=== PATIENT | female | born 1995 | race Caucasian/White ===

== ENCOUNTER 2019-11-01 11:14 | Emergency (ER) | payer SELFPAY ==
[2019-11-01 11:25] VITALS: BP 109/61; PULSE 103; RESP 18; TEMP 37.3; O2SAT 99; BMI 25.0
--- NOTE | 2019-11-01 12:16 | W.ED.GENADLT ---
HPI - General Adult General: Chief complaint: Dental/Oral Stated complaint: SORE THROAT Time Seen by Provider: 11/01/19 12:06 History of Present Illness: HPI narrative: Patient is a 24-year-old female who comes to the ED with a sore throat. Symptoms started yesterday when she woke up. She has had a fever of about 100 ?F taken at home. She is taken ibuprofen at home to help with fevers. She describes her throat is very sore and her tonsils feel very swollen. She says she has been very tired over the last 24 hours. Denies any contact with any known mono or strep positive patients. Associated symptoms: Deny chest pain, dyspnea, headache(s), nausea, rash, palpitations or vomiting Review of Systems Const: Reports: fever(s); Denies: chills or fatigue Eyes: Denies: change in vision or eye discomfort ENMT: Reports: throat pain, enlarged tonsils and odynophagia; Denies: nasal discharge or nasal congestion Card: Denies: chest pain, palpitations, edema, swelling of feet/ankles, dyspnea on exertion or orthopnea Resp: Denies: dyspnea, productive cough or non-productive cough GI: Denies: abdominal pain, nausea, vomiting, diarrhea, constipation or hematochezia : Denies: flank pain, dysuria or hematuria Musc: Denies: neck pain, back pain or extremity swelling Skin/Breast: Denies: rash or new lesions Neuro: Denies: headache(s), numbness in extremities or weakness in extremities PFS ED PFSH: Social History Smoking and tobacco status: light tobacco smoker Alcohol intake: current Alcohol intake frequency: holidays/special occasions only Substance/Drug Use: never Female Reproductive History: Date of last menstrual period: 07/30/19 Physical Exam Const: COMMON NORMALS: no acute distress, patient oriented x3 and alert GENERAL APPEARANCE: cooperative HENMT: COMMON NORMALS: normocephalic HEAD & SCALP: normocephalic MOUTH: Normal oral and palatal mucosa present THROAT: uvula midline and abnormal tonsil bilateral erythema, exudates and hypertrophy 3+ OTHER: Patient's breath is malodorous. Eye: COMMON NORMALS: Equal, round and reactive pupils present PUPIL: Yes Equal, round and reactive pupils present Neck/C-Spine: COMMON NORMALS: supple GENERAL: Yes normal visual inspection Resp: COMMON NORMALS: normal respiratory effort, No retractions, No use of accessory muscles and clear to auscultation bilaterally AUSCULTATION: clear to auscultation bilaterally Cardio: COMMON NORMALS: regular rate, regular rhythm, S1 normal heart sound present, S2 normal heart sound present, No gallops present (Cardio), No clicks present (Cardio), No murmurs present (Cardio) and Peripheral pulses 2+ throughout RATE: regular rate RHYTHM: regular rhythm HEART SOUNDS: S1 normal heart sound present and S2 normal heart sound present PERIPHERAL PULSES: Peripheral pulses 2+ throughout GI: COMMON NORMALS: Normal to inspection, nondistended, normoactive bowel sounds present, Soft to palpation, non-tender and no masses PALPATION: Yes Soft to palpation : COMMON NORMALS: Yes no CVA tenderness BLADDER/KIDNEY EXAM: Yes no CVA tenderness Back/Pelvis: COMMON NORMALS: no CVA tenderness Extremity: COMMON NORMALS: normal to inspection and no pedal edema Neuro: COMMON NORMALS: patient oriented x3 and moves all extremities SENSORIUM/ORIENTATION: Yes alert Skin: COMMON NORMALS: no rashes or lesions noted GENERAL SKIN EXAM: no rashes or lesions noted and dry skin Course Vital Signs: Vital signs: Vital Signs Temperature 99.1 F 11/01/19 11:25 Pulse Rate 103 H 11/01/19 11:25 Respiratory Rate 18 11/01/19 11:25 Blood Pressure 109/61 11/01/19 11:25 Pulse Oximetry 99 11/01/19 11:25 MDM - General Adult MDM Narrative: Medical decision making narrative: Patient is a 24-year-old female comes to the ED with sore throat. She tested positive for strep and was given the single dose Bicillin IM treatment. She was also given a dose of Tylenol while here on the unit. Patient was told to follow-up with primary care doctor in 7 to 10 days. Take Tylenol or ibuprofen for fevers or pain. Return to ED if symptoms worsen. Patient understood and agreed with plan. Lab Data: Attestation: I reviewed the patient's lab results. Labs: Lab Results 11/01/19 Range/Units 12:15 Group A Strep Rapi d Positive H (Negative) Discharge Plan Discharge Patient Disposition: Home, Self-Care Clinical Impression: Strep throat Condition: Stable Discharge Orders: Discharge Order (Routine); Ordered 11/01/19 Ordered By: Terry Gaviria Discharge Diet: Regular Discharge Activity: Increase activity as tolerated Patient Instructions: Strep Throat - Adult Activity Restrictions/Additional Instructions: You were given a single injection of penicillin to treat strep while here in the ED. follow-up with medical provider as directed in 7 days. Take Tylenol or ibuprofen as needed for pain or fevers. Drink plenty of fluids and stay hydrated. Return to the ER or your medical provider if condition worsens. Please read and understand discharge instructions. If any questions, please ask. Coding Level of Care Code ED Surgical Instruments Inspector for Jessica Fwd Exam Comprehensive
[2019-11-01 12:31] LABS: Rapid Strep A Test Positive (Negative)
[2019-11-01] MEDS: penicillin g (L-A) 1,200,000 unit/2 mL Syr 1200000 UNIT IM (12:58)
[2019-11-01] MEDS: acetaminophen 500 mg Tablet PO (13:00)
[2019-11-01 13:05] VITALS: BP 113/81; PULSE 72; RESP 18; O2SAT 99
== END 2019-11-01 13:08 | disposition home or self-care (01) ==
PROVIDERS: Emergency Medicine; Emergency Provider Physician Assistant
DX: J02.0 Streptococcal pharyngitis (principal); F17.210 Nicotine dependence, cigarettes, uncomplicated
CPT/HCPCS: 12345; 87880; 96372; 99282; 99283; J0561

== ENCOUNTER → 2021-05-29 10:52 | Outpatient (BNVA) | payer SELFPAY | PROVIDERS: Visit Provider Nurse Practitioner | DX: R10.9 Unspecified abdominal pain (principal) | CPT/HCPCS: 80053; 85025 ==

== ENCOUNTER 2021-06-11 16:42 | Emergency (ER) | payer SELFPAY ==
[2021-06-11 16:58] VITALS: BP 121/80; PULSE 74; RESP 18; TEMP 36.9; O2SAT 99; BMI 23.8
--- NOTE | 2021-06-11 17:31 | W.ED.GENADLT ---
Documented by User: LUIS Dodge 06/12/21 00:51 HPI - General Adult General: Chief complaint: General Medical Stated complaint: vomiting up blood and green foam Time Seen by Provider: 06/11/21 17:04 History of Present Illness: Patient is a 25-year-old female who comes to the ED with abdominal pain, nausea/vomiting and diarrhea. Patient has been having the symptoms now for almost 3 months. She saw her PCP 2 weeks ago and they put her on some Zofran and it helped but when she ran out her symptoms came back. She started having abdominal pain nausea and vomiting and diarrhea at 3:00 this morning. She has not been able to keep any food or fluids down. She is having multiple episodes of diarrhea daily. Her abdominal pain is located in the left upper and left lower side of the abdomen. She rates her pain as mild to moderate. Associated symptoms: Reports nausea and vomiting; Deny chest pain, dyspnea, headache(s), rash or palpitations Review of Systems Const: Reports: chills and fatigue; Denies: fever(s) Eyes: Denies: change in vision or eye discomfort ENMT: Denies: throat pain, odynophagia, nasal discharge or nasal congestion Card: Denies: chest pain, palpitations, edema, swelling of feet/ankles, dyspnea on exertion or orthopnea Resp: Denies: dyspnea, productive cough or non-productive cough GI: Reports: abdominal pain, nausea, vomiting and diarrhea; Denies: constipation or hematochezia : Reports: vaginal discharge (Yellowish and green follow-up with medical provider as directed in 7-10 day); Denies: flank pain, dysuria or hematuria Musc: Denies: neck pain, back pain or extremity swelling Skin/Breast: Denies: rash or new lesions Neuro: Denies: headache(s), numbness in extremities or weakness in extremities PFSH ED PFSH: Medical History No pertinent family history Surgical History H/O tubal ligation Social History Smoking and tobacco status: current every day smoker Alcohol intake: current Alcohol intake frequency: holidays/special occasions only Current gender identity: Female Female Reproductive History: Date of last menstrual period: 12/23/20 Physical Exam Const: COMMON NORMALS: no acute distress, patient oriented x3, healthy appearing and alert GENERAL APPEARANCE: cooperative and comfortable HENMT: COMMON NORMALS: normocephalic HEAD & SCALP: normocephalic MOUTH: Normal oral and palatal mucosa present THROAT: posterior oropharynx normal and uvula midline Eye: COMMON NORMALS: Equal, round and reactive pupils present and conjunctivae normal CONJUNCTIVA: Yes conjunctivae normal PUPIL: Yes Equal, round and reactive pupils present Neck/C-Spine: COMMON NORMALS: supple GENERAL: Yes normal visual inspection Resp: COMMON NORMALS: normal respiratory effort, No retractions, No use of accessory muscles and clear to auscultation bilaterally AUSCULTATION: clear to auscultation bilaterally Cardio: COMMON NORMALS: regular rate, regular rhythm, S1 normal heart sound present, S2 normal heart sound present, No gallops present (Cardio), No clicks present (Cardio), No murmurs present (Cardio) and Peripheral pulses 2+ throughout RATE: regular rate RHYTHM: regular rhythm HEART SOUNDS: S1 normal heart sound present and S2 normal heart sound present PERIPHERAL PULSES: Peripheral pulses 2+ throughout GI: COMMON NORMALS: Normal to inspection, nondistended, normoactive bowel sounds present, Soft to palpation, non-tender and no masses PALPATION: Yes Soft to palpation : COMMON NORMALS: Yes no CVA tenderness BLADDER/KIDNEY EXAM: Yes no CVA tenderness Back/Pelvis: COMMON NORMALS: no CVA tenderness Extremity: COMMON NORMALS: normal to inspection and no pedal edema Neuro: COMMON NORMALS: patient oriented x3 SENSORIUM/ORIENTATION: Yes alert GAIT: Yes Normal gait present Skin: GENERAL SKIN EXAM: dry skin Course Vital Signs: Vital signs: Vital Signs Temperature 97.5 F L 06/11/21 21:55 Pulse Rate 87 06/11/21 21:55 Respiratory Rate 17 06/11/21 21:55 Blood Pressure 115/64 06/11/21 21:55 Pulse Oximetry 98 06/11/21 21:55 [facility] - General Adult Medical Decision Making Patient is a 25-year-old female comes to the ED with abdominal pain, nausea/vomiting and diarrhea. She has been having symptoms like this for the past couple months and said it went away recently but came back within the last couple days. Vitals are stable. Abdominal tenderness on the left upper and left lower quadrant of the abdomen. The rest of exam is benign and patient appears nontoxic and in no acute distress or pain. White blood cell count 13.7 which is actually down from her white blood cell count of 18 approximately 2 weeks ago. Patient has potassium level of 2.6. The rest of her labs are benign. hCG negative. EKG showed no acute findings. CT of the abdomen/pelvis showed no acute findings. Patient was given 1.5 L of fluids, Reglan and IV potassium while here in the ED. Her symptoms improved after IV fluids and meds and she was able to keep p.o. fluids down. Patient was diagnosed with hypokalemia and gastroenteritis and discharged home with some Reglan and dicyclomine. She was told to follow-up with her PCP in the next 3 to 5 days for reevaluation and to have her potassium levels rechecked. Return to ED precautions given. Patient understood and agreed with plan. Lab Data I reviewed the patient's lab results. : 06/11/21 18:20 06/11/21 18:20 Radiology Impressions Abdomen/Pelvis CT 06/11/21 17:35 IMPRESSION: 1. No acute findings. 2. Hepatic steatosis. Laboratory Results WBC 13.7 10^3/uL (4.0-10.0) H 06/11/21 18:20 RBC 3.92 10^6/uL (4.1-5.3) L 06/11/21 18:20 Hgb 12.8 g/dL (11.5-15.3) 06/11/21 18:20 Hct 38.1 % (37.0-47.0) 06/11/21 18:20 MCV 97.2 fl (81-99) 06/11/21 18:20 MCH 32.7 pg (28.0-34.0) 06/11/21 18:20 MCHC 33.6 g/dL (30.0-36.0) 06/11/21 18:20 RDW 14.0 % (12.1-15.1) 06/11/21 18:20 Plt Count 453 10^3/cmm (130-400) H 06/11/21 18:20 MPV 9.5 fL (7.4-10.4) 06/11/21 18:20 Neut % (Auto) 71.4 % 06/11/21 18:20 Lymph % (Auto) 19.6 % 06/11/21 18:20 Catron % (Auto) 6.8 % 06/11/21 18:20 Eos % (Auto) 0.9 % 06/11/21 18:20 Baso % (Auto) 0.9 % 06/11/21 18:20 Neut # (Auto) 9.76 10^3/uL (1.8-7.7) H 06/11/21 18:20 Lymph # (Auto) 2.7 10^3/uL (0.8-4.8) 06/11/21 18:20 Catron # (Auto) 0.9 10^3/uL (0.2-0.9) 06/11/21 18:20 Eos # (Auto) 0.1 10^3/uL (0.0-0.8) 06/11/21 18:20 Baso # (Auto) 0.1 10^3/uL (0.0-0.1) 06/11/21 18:20 Nucleated RBC % (auto) 0 % 06/11/21 18:20 Nucleated RBCs # 0.0 /100WBC 06/11/21 18:20 Sodium 136 mmol/L (136-145) 06/11/21 18:20 Potassium 2.6 mmol/L (3.5-5.1) L* 06/11/21 18:20 Chloride 97 mmol/L (98-107) L 06/11/21 18:20 Carbon Dioxide 24 mmol/L (22-29) 06/11/21 18:20 Anion Gap 17.6 (5-19) 06/11/21 18:20 BUN 4 mg/dL (6-20) L 06/11/21 18:20 Creatinine 0.6 mg/dL (0.5-0.9) 06/11/21 18:20 GFR Calculation 122.8 mL/min (90-130) 06/11/21 18:20 Glucose 119 mg/dL (65-115) H 06/11/21 18:20 Calculated Osmolality 280 mOsm/kg (285-295) L 06/11/21 18:20 Calcium 8.6 mg/dL (8.5-10.5) 06/11/21 18:20 Total Bilirubin 0.7 mg/dL (0.15-1.2) 06/11/21 18:20 AST 26 U/L (0-32) 06/11/21 18:20 ALT 19 U/L (0-33) 06/11/21 18:20 Alkaline Phosphatase 130 IU/L (35-105) H 06/11/21 18:20 Total Protein 6.7 g/dL (6.6-8.7) 06/11/21 18:20 Albumin 4.3 g/dL (3.5-5.2) 06/11/21 18:20 Globulin 2.4 g/dL (1.3-4.6) 06/11/21 18:20 Lipase 9 U/L (13-60) L 06/11/21 18:20 HCG, Qual Negative (Negative) 06/11/21 18:20 Urine Color Yellow (Yellow) 06/11/21 19:25 Urine Appearance Clear (CLEAR) 06/11/21 19:25 Urine pH 5 (5-7) 06/11/21 19:25 Ur Specific [place] 1.007 (1.005-1.030) 06/11/21 19:25 Urine Protein Neg (Negative) 06/11/21 19:25 Urine Glucose (UA) Norm (Normal) 06/11/21 19:25 Urine Ketones Negative (Negative) 06/11/21 19:25 Urine Blood Neg (Negative) 06/11/21 19:25 Urine Nitrate Negative (Negative) 06/11/21 19:25 Urine Bilirubin Neg (Negative) 06/11/21 19:25 Urine Urobilinogen 1 mg/dL (Negative) H 06/11/21 19:25 Ur Leukocyte Esterase Negative (Negative) 06/11/21 19:25 EKG Data EKG 1: EKG interpretation date: 06/11/21 Interpretation: Normal sinus rhythm, no ST segment elevation or depression seen. 70 bpm. Computer generated interpretation: Abdomen/Pelvis CT 06/11/21 17:35 IMPRESSION: 1. No acute findings. 2. Hepatic steatosis. Discharge Plan Discharge Patient Disposition: Home Clinical Impression: Hypokalemia, Gastroenteritis Condition: Stable Prescriptions: New Reglan 10 mg tablet 10 mg PO Q6H PRN (Reason: nausea and vomiting) Qty: 30 0RF dicyclomine 20 mg tablet 20 mg PO QID PRN (Reason: diarrhea and abdominal cramping) Qty: 20 0RF No Action pantoprazole [Protonix] 20 mg tablet,delayed release (DR/EC) 20 mg PO DAILY 14 Days Qty: 14 0RF Discharge Orders: Discharge ED (Routine); Ordered 06/11/21 Ordered By: Terry Gaviria Discharge Diet: Advance as tolerated, Regular and Clear Liquid Discharge Activity: Increase activity as tolerated Patient Instructions: Hypokalemia (ED), Gastroenteritis (ED), Acute Nausea and Vomiting (ED) Activity Restrictions/Additional Instructions: Follow-up with medical provider as directed in the next 2 to 5 days for reevaluation. Have your potassium level rechecked at next appointment. Drink plenty of fluids and stay hydrated. Take medications as prescribed. Return to the ER or your medical provider if condition worsens. Please read and understand discharge instructions. Thank you for choosing [facility] for your healthcare needs today. Please realize this is an emergency room and that we are providing you with a medical screening exam and this may not be complete and all inclusive of all the testing and or work up that you may need to determine your ailment or severity of your illness. It is very important that you follow up as instructed or that you return to the Emergency Department should you have concerns or if your condition changes or worsens in any way. Coding Level of Care Code ED Radio Producer for Chg Fwd Exam Comprehensive Documented by User: Mauro Rollins DO 06/12/21 01:11 HPI - General Adult General: Chief complaint: General Medical Stated complaint: vomiting up blood and green foam Time Seen by Provider: 06/11/21 17:04 History of Present Illness: Patient is a 25-year-old female who comes to the ED with abdominal pain, nausea/vomiting and diarrhea. Patient has been having the symptoms now for almost 3 months. She saw her PCP 2 weeks ago and they put her on some Zofran and it helped but when she ran out her symptoms came back. She started having abdominal pain nausea and vomiting and diarrhea at 3:00 this morning. She has not been able to keep any food or fluids down. She is having multiple episodes of diarrhea daily. Her abdominal pain is located in the left upper and left lower side of the abdomen. She rates her pain as mild to moderate. This patient was originally seen by Mr. Khadra PA-C.? I agree with his history, evaluation, and treatment. [facility] ED PFSH: Medical History No pertinent family history Surgical History H/O tubal ligation Social History Smoking and tobacco status: current every day smoker Alcohol intake: current Alcohol intake frequency: holidays/special occasions only Current gender identity: Female Course Vital Signs: Vital signs: Vital Signs Temperature 97.5 F L 06/11/21 21:55 Pulse Rate 87 06/11/21 21:55 Respiratory Rate 17 06/11/21 21:55 Blood Pressure 115/64 06/11/21 21:55 Pulse Oximetry 98 06/11/21 21:55 MDM - General Adult Lab Data : 06/11/21 18:20 06/11/21 18:20 Radiology Impressions Abdomen/Pelvis CT 06/11/21 17:35 IMPRESSION: 1. No acute findings. 2. Hepatic steatosis. Laboratory Results WBC 13.7 10^3/uL (4.0-10.0) H 06/11/21 18:20 RBC 3.92 10^6/uL (4.1-5.3) L 06/11/21 18:20 Hgb 12.8 g/dL (11.5-15.3) 06/11/21 18:20 Hct 38.1 % (37.0-47.0) 06/11/21 18:20 MCV 97.2 fl (81-99) 06/11/21 18:20 MCH 32.7 pg (28.0-34.0) 06/11/21 18:20 MCHC 33.6 g/dL (30.0-36.0) 06/11/21 18:20 RDW 14.0 % (12.1-15.1) 06/11/21 18:20 Plt Count 453 10^3/cmm (130-400) H 06/11/21 18:20 MPV 9.5 fL (7.4-10.4) 06/11/21 18:20 Neut % (Auto) 71.4 % 06/11/21 18:20 Lymph % (Auto) 19.6 % 06/11/21 18:20 Catron % (Auto) 6.8 % 06/11/21 18:20 Eos % (Auto) 0.9 % 06/11/21 18:20 Baso % (Auto) 0.9 % 06/11/21 18:20 Neut # (Auto) 9.76 10^3/uL (1.8-7.7) H 06/11/21 18:20 Lymph # (Auto) 2.7 10^3/uL (0.8-4.8) 06/11/21 18:20 Catron # (Auto) 0.9 10^3/uL (0.2-0.9) 06/11/21 18:20 Eos # (Auto) 0.1 10^3/uL (0.0-0.8) 06/11/21 18:20 Baso # (Auto) 0.1 10^3/uL (0.0-0.1) 06/11/21 18:20 Nucleated RBC % (auto) 0 % 06/11/21 18:20 Nucleated RBCs # 0.0 /100WBC 06/11/21 18:20 Sodium 136 mmol/L (136-145) 06/11/21 18:20 Potassium 2.6 mmol/L (3.5-5.1) L* 06/11/21 18:20 Chloride 97 mmol/L (98-107) L 06/11/21 18:20 Carbon Dioxide 24 mmol/L (22-29) 06/11/21 18:20 Anion Gap 17.6 (5-19) 06/11/21 18:20 BUN 4 mg/dL (6-20) L 06/11/21 18:20 Creatinine 0.6 mg/dL (0.5-0.9) 06/11/21 18:20 GFR Calculation 122.8 mL/min (90-130) 06/11/21 18:20 Glucose 119 mg/dL (65-115) H 06/11/21 18:20 Calculated Osmolality 280 mOsm/kg (285-295) L 06/11/21 18:20 Calcium 8.6 mg/dL (8.5-10.5) 06/11/21 18:20 Total Bilirubin 0.7 mg/dL (0.15-1.2) 06/11/21 18:20 AST 26 U/L (0-32) 06/11/21 18:20 ALT 19 U/L (0-33) 06/11/21 18:20 Alkaline Phosphatase 130 IU/L (35-105) H 06/11/21 18:20 Total Protein 6.7 g/dL (6.6-8.7) 06/11/21 18:20 Albumin 4.3 g/dL (3.5-5.2) 06/11/21 18:20 Globulin 2.4 g/dL (1.3-4.6) 06/11/21 18:20 Lipase 9 U/L (13-60) L 06/11/21 18:20 HCG, Qual Negative (Negative) 06/11/21 18:20 Urine Color Yellow (Yellow) 06/11/21 19:25 Urine Appearance Clear (CLEAR) 06/11/21 19:25 Urine pH 5 (5-7) 06/11/21 19:25 Ur Specific [place] 1.007 (1.005-1.030) 06/11/21 19:25 Urine Protein Neg (Negative) 06/11/21 19:25 Urine Glucose (UA) Norm (Normal) 06/11/21 19:25 Urine Ketones Negative (Negative) 06/11/21 19:25 Urine Blood Neg (Negative) 06/11/21 19:25 Urine Nitrate Negative (Negative) 06/11/21 19:25 Urine Bilirubin Neg (Negative) 06/11/21 19:25 Urine Urobilinogen 1 mg/dL (Negative) H 06/11/21 19:25 Ur Leukocyte Esterase Negative (Negative) 06/11/21 19:25 EKG Data EKG 1: Computer generated interpretation: Abdomen/Pelvis CT 06/11/21 17:35 IMPRESSION: 1. No acute findings. 2. Hepatic steatosis. Discharge Plan Discharge Patient Disposition: Home Clinical Impression: Hypokalemia, Gastroenteritis Condition: Stable Prescriptions: New Reglan 10 mg tablet 10 mg PO Q6H PRN (Reason: nausea and vomiting) Qty: 30 0RF dicyclomine 20 mg tablet 20 mg PO QID PRN (Reason: diarrhea and abdominal cramping) Qty: 20 0RF No Action pantoprazole [Protonix] 20 mg tablet,delayed release (DR/EC) 20 mg PO DAILY 14 Days Qty: 14 0RF Discharge Orders: Discharge ED (Routine); Ordered 06/11/21 Ordered By: Terry Gaviria Discharge Diet: Advance as tolerated, Regular and Clear Liquid Discharge Activity: Increase activity as tolerated Patient Instructions: Hypokalemia (ED), Gastroenteritis (ED), Acute Nausea and Vomiting (ED) Activity Restrictions/Additional Instructions: Follow-up with medical provider as directed in the next 2 to 5 days for reevaluation. Have your potassium level rechecked at next appointment. Drink plenty of fluids and stay hydrated. Take medications as prescribed. Return to the ER or your medical provider if condition worsens. Please read and understand discharge instructions. Thank you for choosing [facility] for your healthcare needs today. Please realize this is an emergency room and that we are providing you with a medical screening exam and this may not be complete and all inclusive of all the testing and or work up that you may need to determine your ailment or severity of your illness. It is very important that you follow up as instructed or that you return to the Emergency Department should you have concerns or if your condition changes or worsens in any way. Coding Level of Care Code ED Radio Producer for Jessica Green Exam Comprehensive
--- NOTE | 2021-06-11 17:35 | CTR_ITS ---
PROCEDURE INFORMATION: Exam: CT Abdomen And Pelvis With Contrast Exam date and time: 06/11/2021 5:35 PM Age: 25 years old Clinical indication: Nausea and vomiting and other: Diarrhea; Abdominal pain; Localized; Left lower quadrant (llq); Prior surgery; Surgery date: 6+ months; Surgery type: Appy; Additional info: Left side abdominal pain, n/v/d TECHNIQUE: Imaging protocol: Computed tomography of the abdomen and pelvis with contrast. Radiation optimization: All CT scans at this facility use at least one of these dose optimization techniques: automated exposure control; mA and/or kV adjustment per patient size (includes targeted exams where dose is matched to clinical indication); or iterative reconstruction. Contrast material: OMNI 300; Contrast volume: 95 ml; Contrast route: INTRAVENOUS (IV); COMPARISON: No relevant prior studies available. RADIATION DOSE METRICS: Total DLP (mGy-cm): 1002.51 FINDINGS: Lungs: Lung bases are clear. Liver: There is diffuse low-attenuation of the liver relative to the spleen consistent with fatty infiltration. There is no focal liver abnormality. Gallbladder and bile ducts: The gallbladder is normal. There is no biliary dilation. Pancreas: The pancreas is unremarkable. Spleen: The spleen is unremarkable. Adrenal glands: The adrenal glands are unremarkable. Kidneys and ureters: The kidneys are unremarkable. No hydronephrosis or stones. No ureteral dilation. Stomach and bowel: The stomach is decompressed, preventing meaningful evaluation of wall thickness. The small bowel is nondilated. The colon is unremarkable. Appendix: The appendix is absent. Intraperitoneal space: There is no free air or significant intraperitoneal free fluid. Vasculature: The aorta is unremarkable. There is no aneurysm. The portal, splenic and superior mesenteric veins are patent. Lymph nodes: There is no lymphadenopathy in the retroperitoneum, mesentery, pelvis or inguinal regions. Urinary bladder: The urinary bladder is unremarkable. Reproductive: The uterus is unremarkable. There is no adnexal mass or large cyst. Bones/joints: Unremarkable. No acute fracture. Soft tissues: The abdominal wall is intact. CT/CT abdomen pelvis w con* [id number] IMPRESSION: 1. No acute findings. 2. Hepatic steatosis.
[2021-06-11] MEDS: sodium chloride 0.9% 1,000 ML 999 ML IV (18:00)
[2021-06-11] MEDS: ondansetron 2 mg/ML SDV 2 mL 4 MG IVP (18:00)
[2021-06-11 18:25] LABS: Basophils # 0.1 10^3/uL (0.0-0.1); Basophils % 0.9 %; Eosinophils # 0.1 10^3/uL (0.0-0.8); Eosinophils % 0.9 %; Hematocrit 38.1 % (37.0-47.0); Hemoglobin 12.8 g/dL (11.5-15.3); Lymphocytes # 2.7 10^3/uL (0.8-4.8); Lymphocytes % 19.6 %; Mean Corpuscular HGB Conc 33.6 g/dL (30.0-36.0); Mean Corpuscular Hemoglobin 32.7 pg (28.0-34.0); Mean Corpuscular Volume 97.2 fl (81-99); Mean Platelet Volume 9.5 fL (7.4-10.4); Monocytes # 0.9 10^3/uL (0.2-0.9); Monocytes % 6.8 %; Neutrophils # 9.76 10^3/uL (1.8-7.7); Neutrophils % 71.4 %; Nucleated Red Blood Cells % 0 %; Platelet Count 453 10^3/cmm (130-400); Red Blood Count 3.92 10^6/uL (4.1-5.3); White Blood Count 13.7 10^3/uL (4.0-10.0)
[2021-06-11 18:36] LABS: HCG, Serum Qual Negative (Negative)
[2021-06-11 18:46] LABS: Alanine Aminotransferase 19 U/L (0-33); Albumin Level 4.3 g/dL (3.5-5.2); Alkaline Phosphatase 130 IU/L (35-105); Anion Gap 17.6 (5-19); Aspartate Amino Transferase 26 U/L (0-32); Blood Urea Nitrogen 4 mg/dL (6-20); Calcium 8.6 mg/dL (8.5-10.5); Carbon Dioxide 24 mmol/L (22-29); Chloride 97 mmol/L (98-107); Globulin 2.4 g/dL (1.3-4.6); Glomerular Filtration Rate 122.8 mL/min (90-130); Glucose 119 mg/dL (65-115); Lipase 9 U/L (13-60); Osmolality Calculated 280 mOsm/kg (285-295); Sodium 136 mmol/L (136-145); Total Bilirubin 0.7 mg/dL (0.15-1.2); Total Protein 6.7 g/dL (6.6-8.7)
[2021-06-11 18:53] LABS: Potassium 2.6 mmol/L (3.5-5.1)
--- NOTE | 2021-06-11 18:54 | ECG_ITS ---
[facility] Test Date: 2021-06-11 Pat Name: Kinsey Irvin Department: Room: Gender: Female Central Supply Clerk: : 1995 Requested By: Terry Gaviria Order Number: [id number] Van MD: John Nash M.D. Measurements Intervals [place] Rate: 70 P: 66 NE: 130 QRS: 75 QRSD: 102 T: 78 QT: 419 QTc: 453 Interpretive Statements SINUS RHYTHM INCOMPLETE RIGHT BUNDLE BRANCH BLOCK [90+ ms QRS DURATION, TERMINAL R IN V1/V2, 40+ ms S IN I/aVL/V4/V5/V6] NONSPECIFIC T-WAVE ABNORMALITY Compared to ECG 05/29/2018 16:42:04 Incomplete right bundle-branch block now present T-wave abnormality now present Electronically Signed On 06-12-2021 8:49:56 DRAWING TRACER by John Nash M.D. [id number]
[2021-06-11] MEDS: iohexol 300 mg/mL 100 mL Btl IV (19:08)
[2021-06-11 19:32] LABS: Add Urine Microscopic? NO; Charge for UA Resulting for Rev
[2021-06-11 19:36] LABS: Bilirubin Urine Neg (Negative); Blood Urine Neg (Negative); Glucose Urine UA Norm (Normal); Ketones Urine Negative (Negative); Leukocyte Esterase Urine Negative (Negative); Nitrate Urine Negative (Negative); Protein Urine Neg (Negative); Specific Gravity, Urine 1.007 (1.005-1.030); Urine Appearance Clear (CLEAR); Urine Color Yellow (Yellow); Urobilinogen Urine 1 mg/dL (Negative); pH Urine 5 (5-7)
[2021-06-11] MEDS: sodium chloride 0.9% 500 ML 999 ML IV (19:47)
[2021-06-11] MEDS: lidocaine 1% 5 ML in potassium chloride premix 100 ML 25 ML IV (19:48)
[2021-06-11] MEDS: metoclopramide 5 mg/mL SDV 2 mL 10 MG IVP (20:07)
[2021-06-11 20:09] VITALS: BP 115/64; PULSE 70; RESP 14; TEMP 36.6; O2SAT 98
[2021-06-11 21:55] VITALS: BP 115/64; PULSE 87; RESP 17; TEMP 36.4; O2SAT 98
== END 2021-06-11 21:56 | disposition home or self-care (01) ==
PROVIDERS: Emergency Provider Physician Assistant
DX: K52.9 Noninfective gastroenteritis and colitis, unspecified (principal); E87.6 Hypokalemia; F17.210 Nicotine dependence, cigarettes, uncomplicated
CPT/HCPCS: 74177; 80053; 81003; 83690; 84703; 85025; 87210; 93005; 96361; 96365; 96375; 99284; J2405; J2765; J3480; J7030; J7040; Q9967

== ENCOUNTER → 2021-06-28 12:39 | Outpatient (BNVA) | payer SELFPAY | PROVIDERS: Visit Provider Nurse Practitioner | DX: R50.9 Fever, unspecified (principal) | CPT/HCPCS: 87071; 87400; 87880 ==

== ENCOUNTER 2021-10-05 17:04 | Inpatient (IN) | payer MEDICAID, SELFPAY ==
[2021-10-05 17:05] VITALS: BP 118/70; PULSE 77; O2SAT 95; BMI 23.3
--- NOTE | 2021-10-05 17:08 | XRR_ITS ---
PROCEDURE INFORMATION: Exam: XR Chest Exam date and time: 10/05/2021 5:31 PM Age: 26 years old Clinical indication: Other: AMS TECHNIQUE: Imaging protocol: XR of the chest. Views: 1 view. COMPARISON: CR Chest 1 [place] [id number] 05/29/2018 5:12 PM FINDINGS: Lungs: Unremarkable. No consolidation. Pleural spaces: Unremarkable. No pleural effusion. No pneumothorax. Heart/Mediastinum: Unremarkable. No cardiomegaly. Bones/joints: Unremarkable. XR/XR chest 1V portable [id number] IMPRESSION: No acute findings.
--- NOTE | 2021-10-05 17:09 | W.ED.GENADLT ---
HPI - General Adult General: Chief complaint: Psychiatric Symptoms Stated complaint: SI Time Seen by Provider: 10/05/21 17:07 History of Present Illness: HPI: [26]yo patient w/ hx of depression presenting to the emergency room for acute polysubstance ingestion and suicide attempt. Per EMS, patient was found next to a bottle of 14 tablets of 20 mg of pantoprazole, a bottle of 21 tablets of 300 mg of gabapentin, and a bottle of 21 tablets of 10 mg of Flexeril that does not belong to the patient. These bottles were filled under a different person in July 2020. Is unclear how much of these pills patient has ingested. On arrival, EMS report the patient ingested alcohol volunteered that she did marijuana earlier today. Patient was agitated in route and EMS had to give patient 200 mg of ketamine. On arrival, patient is somnolent sleeping not agitated. Rest of hx limited due to AMS Onset: acute Duration: ongoing Location: home Severity: severe Review of Systems General: Reports: ROS unobtainable due to mental status Neuro: Reports: other (confusion, sleeping) Psych: Reports: mood swings and other (agitation) PFSH ED PFSH: Medical History No pertinent family history Surgical History H/O tubal ligation Social History Smoking and tobacco status: current every day smoker Alcohol intake: current Alcohol intake frequency: holidays/special occasions only Current gender identity: Female Female Reproductive History: Date of last menstrual period: 12/23/20 Physical Exam HENMT: COMMON NORMALS: atraumatic HEAD & SCALP: atraumatic MOUTH: moist mucous membranes not abnormal Eye: COMMON NORMALS: conjunctivae normal CONJUNCTIVA: Yes conjunctivae normal Neck/C-Spine: COMMON NORMALS: full ROM and supple Resp: COMMON NORMALS: normal respiratory effort and clear to auscultation bilaterally AUSCULTATION: clear to auscultation bilaterally Cardio: COMMON NORMALS: regular rate RATE: regular rate GI: COMMON NORMALS: Soft to palpation and non-tender PALPATION: Yes Soft to palpation Extremity: OTHER: moving all extremities Neuro: SENSORIUM/ORIENTATION: Yes Orientation impaired and Yes somnolent MOTOR EXAM: Other motor observations present (no focal motor deficits) OTHER: Somnolent GCS of 10, occasionally moving extremities arousable to sternal rub Psych: OTHER: +unable to assess due to AMS Course Vital Signs: Vital signs: Vital Signs Pulse Rate 77 10/05/21 17:05 Blood Pressure 118/70 10/05/21 17:05 Pulse Oximetry 95 10/05/21 17:05 MDM - General Adult Medical Decision Making [26]yo patientpresenting for SI with apparent drug overdose. HDS, exam within normal limit Thoughts are linear and organized, and the patient has no AH/VH, or HI. PER EMS: Patient received 200 mg of IM ketamine. Clinically the patient displays no overt toxidrome; they are well appearing, with low suspicion for toxic ingestion given history and exam. Symptoms unlikely 2/2 anemia, hypothyroidism, infection, or ICH. Workup: CBC, CMP, Lipase, salicylate/tylenol, serum ethanol, UDS, CT head Case was discussed with Jina from poison center who tells me that patient would subtoxic if she has taken the maximum dose of these bottles found next to her. Patient is cleared from a toxicological standpoint. She continues to be agitated and required Geodon for sedation. Patient was found to have an alcohol level of 277. +Marijuana in the urine. CT head negative for any acute pathologies. [830pm] On reassessment, labs and workup wnl. Patient is hemodynamically stable with no acute medical complaints. Case discussed with psychiatric provider Dr. Davis at [facility] psych inpatient with recommendation for admission Disposition: Psych Lab Data : 10/05/21 17:51 10/05/21 17:51 Radiology Impressions Chest X-Ray 10/05/21 17:08 IMPRESSION: No acute findings. Head CT 10/05/21 17:08 IMPRESSION: No acute intracranial abnormality. Laboratory Results WBC 11.1 10^3/uL (4.0-10.0) H 10/05/21 17:51 RBC 4.11 10^6/uL (4.1-5.3) 10/05/21 17:51 Hgb 13.5 g/dL (11.5-15.3) 10/05/21 17:51 Hct 39.6 % (37.0-47.0) 10/05/21 17:51 MCV 96.4 fl (81-99) 10/05/21 17:51 MCH 32.8 pg (28.0-34.0) 10/05/21 17:51 MCHC 34.1 g/dL (30.0-36.0) 10/05/21 17:51 RDW 14.6 % (12.1-15.1) 10/05/21 17:51 Plt Count 483 10^3/cmm (130-400) H 10/05/21 17:51 MPV 9.3 fL (7.4-10.4) 10/05/21 17:51 Neut % (Auto) 66.8 % 10/05/21 17:51 Lymph % (Auto) 22.5 % 10/05/21 17:51 [place] % (Auto) 6.8 % 10/05/21 17:51 Eos % (Auto) 2.2 % 10/05/21 17:51 Baso % (Auto) 1.3 % 10/05/21 17:51 Neut # (Auto) 7.44 10^3/uL (1.8-7.7) 10/05/21 17:51 Lymph # (Auto) 2.5 10^3/uL (0.8-4.8) 10/05/21 17:51 [place] # (Auto) 0.8 10^3/uL (0.2-0.9) 10/05/21 17:51 Eos # (Auto) 0.2 10^3/uL (0.0-0.8) 10/05/21 17:51 Baso # (Auto) 0.1 10^3/uL (0.0-0.1) 10/05/21 17:51 Nucleated RBC % (auto) 0 % 10/05/21 17:51 Nucleated RBCs # 0.0 /100WBC 10/05/21 17:51 Sodium 143 mmol/L (136-145) 10/05/21 17:51 Potassium 3.4 mmol/L (3.5-5.1) L 10/05/21 17:51 Chloride 105 mmol/L (98-107) 10/05/21 17:51 Carbon Dioxide 24 mmol/L (22-29) 10/05/21 17:51 Anion Gap 17.4 (5-19) 10/05/21 17:51 BUN 7 mg/dL (6-20) 10/05/21 17:51 Creatinine 0.6 mg/dL (0.5-0.9) 10/05/21 17:51 GFR Calculation 121.8 mL/min (90-130) 10/05/21 17:51 Glucose 102 mg/dL (65-115) 10/05/21 17:51 Calculated Osmolality 294 mOsm/kg (285-295) 10/05/21 17:51 Calcium 9.4 mg/dL (8.5-10.5) 10/05/21 17:51 Total Bilirubin 0.4 mg/dL (0.15-1.2) 10/05/21 17:51 AST 30 U/L (0-32) 10/05/21 17:51 ALT 29 U/L (0-33) 10/05/21 17:51 Alkaline Phosphatase 112 IU/L (35-105) H 10/05/21 17:51 Total Protein 7.3 g/dL (6.6-8.7) 10/05/21 17:51 Albumin 4.5 g/dL (3.5-5.2) 10/05/21 17:51 Globulin 2.8 g/dL (1.3-4.6) 10/05/21 17:51 Lipase 14 U/L (13-60) 10/05/21 17:51 TSH 0.48 uIU/mL (0.27-4.20) 10/05/21 17:51 HCG, Qual Negative (Negative) 10/05/21 17:51 Salicylates < 0.3 mg/dL (3-10) L 10/05/21 17:51 Acetaminophen < 5.0 ug/mL (10-30) L 10/05/21 17:51 Ethyl Alcohol 277 mg/dL (0-10) H 10/05/21 17:51 Imaging Data Other Imaging: Radiologist's impression: [address] [address] [address] Scan Report Signed Patient: Kinsey Irvin Unit #: [id number] : 1995 Age/Sex: 26 / F ADM Date: 10/05/21 Loc: ACCESS CLINICIAN Room/Bed: [facility] Attending Dr: Karan Davis MD Ordering Provider/Ordering MD: Lela Joe MD Date of Service: 10/05/21 Procedure(s): CT head wo con* [id number] Accession Number(s): [id number] Report Number: [id number] PROCEDURE INFORMATION: Exam: CT Head Without Contrast Exam date and time: 10/05/2021 8:46 PM Age: 26 years old Clinical indication: Altered mental status/memory loss and coma or unconsciousness; Additional info: AMS TECHNIQUE: Imaging protocol: Computed tomography of the head without contrast. Radiation optimization: All CT scans at this facility use at least one of these dose optimization techniques: automated exposure control; mA and/or kV adjustment per patient size (includes targeted exams where dose is matched to clinical indication); or iterative reconstruction. COMPARISON: No relevant prior studies available. RADIATION DOSE METRICS: Total DLP (mGy-cm): 973.86 FINDINGS: Brain: Normal. No hemorrhage. Unremarkable white matter. No mass effect. Cerebral ventricles: No ventriculomegaly. Paranasal sinuses: Visualized sinuses are unremarkable. No fluid levels. Mastoid air cells: Visualized mastoid air cells are well aerated. Bones/joints: Unremarkable. No acute fracture. Soft tissues: Unremarkable. CT/CT head wo con* [id number] IMPRESSION: No acute intracranial abnormality. ? Dictated By: Luis Alberto Howard Signed By: Luis Alberto Howard Signed Date/Time: 10/05/212109 DD/ [address] [address] XRay Report Signed Patient: Kinsey Irvin Unit #: [id number] : 1995 Age/Sex: 26 / F ADM Date: 10/05/21 Loc: ER Room/Bed: Attending Dr: Ordering Provider/Ordering MD: Lela Joe MD Date of Service: 10/05/21 Procedure(s): XR chest 1V portable [id number] Accession Number(s): [id number] Report Number: [id number] PROCEDURE INFORMATION: Exam: XR Chest Exam date and time: 10/05/2021 5:31 PM Age: 26 years old Clinical indication: Other: AMS TECHNIQUE: Imaging protocol: XR of the chest. Views: 1 view. COMPARISON: CR Chest 1 [place] [id number] 05/29/2018 5:12 PM FINDINGS: Lungs: Unremarkable. No consolidation. Pleural spaces: Unremarkable. No pleural effusion. No pneumothorax. Heart/Mediastinum: Unremarkable. No cardiomegaly. Bones/joints: Unremarkable. XR/XR chest 1V portable [id number] IMPRESSION: No acute findings. ? Dictated By: Luis Alberto Howard Signed By: Luis Alberto Howard Signed Date/Time: 10/05/21 180 DD/ 1731 Discharge Plan Discharge Patient Disposition: Admitted As Inpatient Admit Provider: Karan Davis Clinical Impression: Depression with suicidal ideation, Intentional drug overdose, Altered mental status Condition: Stable Coding Level of Care Code ED Quality Assistant for Estefaniag Fwd Exam Detailed
[2021-10-05] MEDS: ziprasidone 20 mg/mL SDV 10 MG IM (17:45)
--- NOTE | 2021-10-05 17:45 | PC.NURSE ---
verified Geodon admin with Dr. Joe, Dr. Joe at bedside during admin of medication, patient tolerated well .
[2021-10-05 17:59] LABS: Basophils # 0.1 10^3/uL (0.0-0.1); Basophils % 1.3 %; Eosinophils # 0.2 10^3/uL (0.0-0.8); Eosinophils % 2.2 %; Hematocrit 39.6 % (37.0-47.0); Hemoglobin 13.5 g/dL (11.5-15.3); Lymphocytes # 2.5 10^3/uL (0.8-4.8); Lymphocytes % 22.5 %; Mean Corpuscular HGB Conc 34.1 g/dL (30.0-36.0); Mean Corpuscular Hemoglobin 32.8 pg (28.0-34.0); Mean Corpuscular Volume 96.4 fl (81-99); Mean Platelet Volume 9.3 fL (7.4-10.4); Monocytes # 0.8 10^3/uL (0.2-0.9); Monocytes % 6.8 %; Neutrophils # 7.44 10^3/uL (1.8-7.7); Neutrophils % 66.8 %; Nucleated Red Blood Cells % 0 %; Platelet Count 483 10^3/cmm (130-400); Red Blood Count 4.11 10^6/uL (4.1-5.3); Red Cell Distribution Width 14.6 % (12.1-15.1); White Blood Count 11.1 10^3/uL (4.0-10.0)
[2021-10-05 18:14] LABS: HCG, Serum Qual Negative (Negative)
[2021-10-05 18:32] LABS: Alanine Aminotransferase 29 U/L (0-33); Albumin Level 4.5 g/dL (3.5-5.2); Alcohol Level 277 mg/dL (0-10); Alkaline Phosphatase 112 IU/L (35-105); Anion Gap 17.4 (5-19); Aspartate Amino Transferase 30 U/L (0-32); Blood Urea Nitrogen 7 mg/dL (6-20); Calcium 9.4 mg/dL (8.5-10.5); Carbon Dioxide 24 mmol/L (22-29); Chloride 105 mmol/L (98-107); Globulin 2.8 g/dL (1.3-4.6); Glomerular Filtration Rate 121.8 mL/min (90-130); Glucose 102 mg/dL (65-115); Lipase 14 U/L (13-60); Osmolality Calculated 294 mOsm/kg (285-295); Potassium 3.4 mmol/L (3.5-5.1); Sodium 143 mmol/L (136-145); Thyroid Stimulating Hormone 0.48 uIU/mL (0.27-4.20); Total Bilirubin 0.4 mg/dL (0.15-1.2); Total Protein 7.3 g/dL (6.6-8.7)
[2021-10-05 18:33] LABS: Acetaminophen < 5.0 ug/mL (10-30); Salicylate < 0.3 mg/dL (3-10)
[2021-10-05 19:14] VITALS: BP 124/73; PULSE 74; RESP 16; O2SAT 97
--- NOTE | 2021-10-05 20:33 | PC.NURSE ---
Spoke to Jina from [facility] about what the patient took. She stated that the flexerile peaks at 4-6 hours and normal care is to be given. She is subtoxic with the dose taken. The gabapentin peaks at 2 hours and can cause n/v/d and just need to treat the symptoms. Physician notified.
[2021-10-05 22:22] LABS: Free T4 Free Thyroxine 1.45 ng/dL (0.82-1.77)
[2021-10-05 22:32] VITALS: BP 119/70; PULSE 77; RESP 16; O2SAT 96
[2021-10-05 22:34] VITALS: BP 98/63; PULSE 56; RESP 16; O2SAT 98
--- NOTE | 2021-10-05 23:01 | PC.NURSE ---
ADMISSION PER ER- HPI: [26]yo patient w/ hx of depression presenting to the emergency room for acute polysubstance ingestion and suicide attempt. Per EMS, patient was found next to a bottle of 14 tablets of 20 mg of pantoprazole, a bottle of 21 tablets of 300 mg of gabapentin, and a bottle of 21 tablets of 10 mg of Flexeril that does not belong to the patient. These bottles were filled under a different person in July 2020. Is unclear how much of these pills patient has ingested. On arrival, EMS report the patient ingested alcohol volunteered that she did marijuana earlier today. Patient was agitated in route and EMS had to give patient 200 mg of ketamine. On arrival, patient is somnolent sleeping not agitated. Rest of hx limited due to AMS UPON ARRIVAL TO NPU PT IS SEDATED. GAIT IS UNSTEADY. STAFF ASSISTED PT TO ROOM AND TO CHANGE INTO SCRUBS. PT FALLING ASLEEP THROUGHOUT. UNABLE TO ANSWER MANY QUESTIONS. DID ANSWER SOME, OTHERS PT WOULD IGNORE AND SAY SHE DOESN'T WANT TO BE HERE BUT WILL BE HER FOR A FEW DAYS, AT OTHER TIMES APPEARS TO FALL BACK ASLEEP. WOULD NOT ANSWER QUESTIONS REGARDING ADMISSION AND OD. DID STATE NOT CURRENTLY ON MEDS AND HAS A LATEX ALLERGY. STATES I DON'T KNOW WHEN ASKED ABOUT OUTPATIENT. DID DENY SUBSTANCE ABUSE BUT THEN STATED HERE BEFORE WHEN SHE WAS AND TESTED POSITIVE FOR DRUGS WHEN SHE DID NOT KNOW SHE WAS . CONFIRMED PREVIOUS REHAB BUT THEN WOULD NOT ANSWER FURTHER QUESTIONS REGARDING SUBSTANCE ABUSE. UDS NOT OBTAINED IN ER. SCRAPES NOTED TO LEFT FOOT. NO OTHER SKIN ISSUES NOTED. IN BED RESTING.
--- NOTE | 2021-10-06 03:39 | ECG_ITS ---
[facility] Test Date: 2021-10-05 Pat Name: Kinsey Irvin Department: Room: 151 Gender: Female Business Job Titles: : 1995 Requested By: Lela Joe Order Number: [id number] Carlota MD: John Nash M.D. Measurements Intervals [place] Rate: 70 P: 44 NV: 153 QRS: 47 QRSD: 101 T: 50 QT: 376 QTc: 408 Interpretive Statements SINUS RHYTHM INCOMPLETE RIGHT BUNDLE BRANCH BLOCK [90+ ms QRS DURATION, TERMINAL R IN V1/V2, 40+ ms S IN I/aVL/V4/V5/V6] Compared to ECG 06/11/2021 19:16:53 T-wave abnormality no longer present Electronically Signed On 10-06-2021 17:05:47 CDT by John Nash M.D. [email or web address]
[2021-10-06 06:00] VITALS: BP 91/58; PULSE 57; RESP 16; O2SAT 99
--- NOTE | 2021-10-06 06:40 | PC.NURSE ---
THIS MORNING PT IS UP. COMPLETED INTAKE. IRRITABLE, STATING SHE DOES NOT WANT TO BE HERE AND WON'T BE HERE LONG. DENIES HAVING SA. STATES SHE TOOK 2 GABBIES AND 3 FLEXARIL . STATES SHE JUST WANTED TO BE NUMB. DENIES DOING ANY OUTPATIENT CARE, STATES SHE WILL NOT DO ANY, DENIES ANY MEDS STATING SHE WILL NOT TAKE ANY MEDS. DOES ENDORSE DAILY DRINKING. GLASSES HAVE BEEN REMOVED FROM PERSONAL BELONGINGS AND GIVEN TO PT. PT DID ASK IF SHE BROUGHT IN A PHONE. NO PHONE WAS BROUGHT TO UNIT. ER REPORTED AT ADMISSION THAT PT DID NOT HAVE PHONE BROUGHT IN. PT ALSO ASKING FOR HER CHAIN GESTURING FOR A NECKLACE. EXPLAINED TO PT THAT NO CHAIN WAS PRESENT UPON ADMISSION.
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
--- NOTE | 2021-10-06 09:18 | PC.OT ---
OT eval orders recieved. RN stated to approach pt with caution. Upon knocking on door, pt yelled Get out! Therapist left door with pt yelling out but unable to understand what she was saying. OT eval will be attempted at later date.
[2021-10-06] MEDS: folic acid 1 mg Tablet PO (09:49)
[2021-10-06] MEDS: thiamine 100 mg Tablet PO (09:49)
[2021-10-06] MEDS: multivitamin therapeutic Tablet 1 TAB PO (09:49)
[2021-10-06 14:00] VITALS: BP 108/73; PULSE 72; RESP 16; TEMP 36.6; O2SAT 98
[2021-10-06 20:03] VITALS: BP 111/73; PULSE 55; RESP 18; O2SAT 99
[2021-10-07 06:00] VITALS: BP 106/71; PULSE 60; RESP 18; O2SAT 99
[2021-10-07] MEDS: multivitamin therapeutic Tablet 1 TAB PO (08:53)
[2021-10-07] MEDS: thiamine 100 mg Tablet PO (08:53)
--- NOTE | 2021-10-07 09:27 | PC.NURSE ---
DENIES SI/HI AND AVH AT THIS TIME. DENIES INTENTIONALLY OVERDOSING. STATES, I JUST WANTED TO FEEL NUMB FOR A MINUTE, I WASN'T TRYING TO . REQUESTED TO SPEAK TO DR. ROMERO PT SHE WOULD SEE DR MCCLELLAN AM. SUPPORT VOICED.
--- NOTE | 2021-10-07 11:35 | P.NPUPN_ITS ---
Subjective NPU Subjective: She says that she is doing well. She continues to minimize her suicidal statements and overdose. She has behaved fairly well on the unit. She does not seem very depressed. She agreed to stay 1 more day and be released tomorrow if she continues to do well. Mental Status Exam MSE Comments: This is a 26-year-old appropriate weight female who appears approximately her stated age and is in mild distress. She is dressed in hospital scrubs and has adequate grooming. Eye contact is good. psychomotor activity is probably normal. Speech is at a regular rate and rhythm, normal volume, good articulation, not pressured. Alert, oriented X3 Attention and concentration appears to be normal. Memory is intact Mood is mildly depressed. Affect is affect mildly dysphoric. Thought process is logical and goal-directed. Thought content: Denies auditory and visual hallucinations. No delusions or paranoia are noted. No current suicidal ideation. He denies homicidal ideation. Fund of knowledge is probably average. Insight and judgment appear to be poor. Impulse control is poor. Cognition: Patient Appearance: Appropriate Level of Consciousness: Disoriented and Drowsy Patient Cognition Impaired: No Ability to Follow Directions: Good Patient Orientation (long list): Person, Place, Time and Name Comprehension Ability: No Impairment Hallucination Type: None Delusion Description: Not Present Thought Process: Appropriate Affect: Affect Description: Appropriate and Calm Behavior: Patient Behavior: Appropriate and Cooperative Speech Pattern: Appropriate and Clear Vitals/I&O/Wt Last Vital Signs Temp 97.8 F 10/06/21 14:00 Pulse 60 10/07/21 06:00 Resp 18 10/07/21 06:00 BP 106/71 10/07/21 06:00 Pulse Ox 99 10/07/21 06:00 Weight last 48 hrs Weight 63.503 kg Data NPU : 10/05/21 17:51 10/05/21 17:51 A&P Assessment and plan (1) Intentional drug overdose: Status: Acute (2) Anxiety: Status: Acute (3) Major depressive disorder: Status: Acute (4) Suicidal ideation: Status: Acute (5) Alcohol abuse: Status: Acute (6) Methamphetamine abuse: Status: Acute Plan This is a 26-year-old female with past history of multiple hospitalizations for suicidal ideation and methamphetamine abuse who took an overdose of medication and was quite intoxicated yesterday. She is quite combative with EMS and police. Plan: 1. Observe only on as needed medications for now. 2. Continue every 15 minute checks for safety. 3. Encourage individual, group and milieu therapies. 4. Encourage sober living treatment after discharge at the highest level of care to which she is willing to commit. 5. We will monitor for safety for herself in the community prior to discharge. Involuntary Hold Information 96 Hour Hold: 96 Hour Involuntary Admission: Yes 96 Hour Hold Ending Date: 10/11/21 96 Hour Hold Ending Time: 20:42 Attestations NPU Medical Necessity Statement*: Inpatient hospitalization is medically necessary and the clinically appropriate intervention at this time. We will initiate medications and make changes as indicated. Coding Level of Care Code Acute Endoscopy Registered Nurse for Jessica Fwd Diagnoses Intentional drug overdose T50.902A Anxiety F41.9 Major depressive disorder F32.9 Suicidal ideation R45.851 Alcohol abuse F10.10 Methamphetamine abuse F15.10
[2021-10-07 14:00] VITALS: BP 105/70; PULSE 58; RESP 20; TEMP 36.9; O2SAT 98
[2021-10-07 19:54] VITALS: BP 112/77; PULSE 58; RESP 18; TEMP 36.9; O2SAT 96
[2021-10-08 06:00] VITALS: BP 109/75; PULSE 84; RESP 17; TEMP 36.7; O2SAT 98
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
[2021-10-08 07:29] VITALS: BP 109/75; PULSE 84; RESP 17; TEMP 36.7; O2SAT 98
--- NOTE | 2021-10-09 07:11 | PC.OT ---
OT EVALUATION ORDERS RECEIVED. PATIENT DISCHARGED BEFORE EVALUATION COULD BE COMPLETED.
== END 2021-10-08 07:55 | disposition home or self-care (01) | DRG 918 ==
LOC: ER 18:45 → NP 21:11
PROVIDERS: Admitting Provider Psychiatry & Neurology Psychiatry; Emergency Provider Emergency Medicine; Visit Provider Psychiatry & Neurology Psychiatry
DX: T47.1X2A Poisoning by other antacids and anti-gastric-secretion drugs, intentional self-harm, initial encounter (principal); T42.6X2A Poisoning by other antiepileptic and sedative-hypnotic drugs, intentional self-harm, initial encounter; T48.1X2A Poisoning by skeletal muscle relaxants [neuromuscular blocking agents], intentional self-harm, initial encounter; T40.712A Poisoning by cannabis, intentional self-harm, initial encounter; T51.0X2A Toxic effect of ethanol, intentional self-harm, initial encounter; F10.129 Alcohol abuse with intoxication, unspecified; Y90.8 Blood alcohol level of 240 mg/100 ml or more; F12.90 Cannabis use, unspecified, uncomplicated; F15.10 Other stimulant abuse, uncomplicated; F32.9 Major depressive disorder, single episode, unspecified; F17.200 Nicotine dependence, unspecified, uncomplicated; F41.1 Generalized anxiety disorder; F43.12 Post-traumatic stress disorder, chronic
CPT/HCPCS: 70450; 71045; 80053; 80307; 83690; 84439; 84443; 84703; 85025; 93005; 96372; 99285; J3486

== ENCOUNTER → 2021-11-21 09:50 | Outpatient (BNVA) | payer MEDICAID, SELFPAY | PROVIDERS: Visit Provider Family Medicine Adult Medicine | DX: Z20.822 Contact with and (suspected) exposure to COVID-19 (principal) | CPT/HCPCS: 87635 ==

== ENCOUNTER → 2022-04-05 09:30 | Outpatient (BNVA) | payer MEDICAID, SELFPAY | PROVIDERS: Visit Provider Emergency Medicine | DX: R68.89 Other general symptoms and signs (principal); R11.0 Nausea; K52.9 Noninfective gastroenteritis and colitis, unspecified | CPT/HCPCS: 87400 ==

== ENCOUNTER 2022-12-31 02:37 | Inpatient (IN) | payer MEDICAID, SELFPAY ==
[2022-12-31] VITALS (7 sets, daily range): BP systolic 107–118; BP diastolic 64–84; PULSE 65–77; RESP 16–18; TEMP 36.7–36.9; O2SAT 94–98; BMI 24.2
--- NOTE | 2022-12-31 02:50 | ED.C_ITS ---
HPI - Psych General: Chief Complaint: Psychiatric Symptoms Stated Complaint: Si Time Seen by Provider: 12/31/22 02:39 Source: patient and EMS Mode of arrival: EMS Limitations: no limitations History of Present Illness: 27-year-old female has a history of depression she states has been out of her meds for months and has been having increasing thoughts of killing herself. When asked if she had planned she would not tell me as being very difficult was not answering many questions and was yelling at me as well. EMS states that she had told them that she did want to kill herself. Associated symptoms: Reports depression and suicidal ideation Review of Systems Const: Denies: fever(s), chills, body aches or change in appetite Eyes: Denies: blurry vision or eye discomfort ENMT: Denies: throat pain or dental pain Card: Denies: chest pain Resp: Denies: dyspnea GI: Denies: abdominal pain, nausea, vomiting or diarrhea Musc: Denies: neck pain or back pain Skin/Breast: Denies: rash Neuro: Denies: headache(s) Psych: Reports: depression and suicidal ideation Jared/Lymph: Denies: easy bruising All/Imm: Denies: urticaria PFSH ED PFSH: Medical History No pertinent family history Viral syndrome Surgical History H/O tubal ligation Social History Smoking and tobacco status: current every day smoker Alcohol intake: current Alcohol intake frequency: holidays/special occasions only Substance/Drug Use: never Current gender identity: Female Physical Exam Const: COMMON NORMALS: no acute distress, patient oriented x3 and healthy appearing HENMT: COMMON NORMALS: normocephalic and atraumatic HEAD & SCALP: normocephalic and atraumatic Eye: COMMON NORMALS: conjunctivae normal CONJUNCTIVA: Yes conjunctivae normal Neck/C-Spine: COMMON NORMALS: full ROM and supple Chest: COMMONS NORMALS: normal inspection of the chest Resp: COMMON NORMALS: normal respiratory effort Cardio: COMMON NORMALS: regular rate, regular rhythm and No murmurs present (Cardio) RATE: regular rate RHYTHM: regular rhythm GI: INSPECTION: Yes normal to inspection Extremity: COMMON NORMALS: normal to inspection and full ROM Neuro: COMMON NORMALS: patient oriented x3, moves all extremities and no focal motor deficits Psych: COMMON NORMALS: mental status grossly normal, Normal thought process present and cooperative THOUGHT PROCESS: Normal thought process present THOUGHT CONTENT: Yes Suicidality present Skin: COMMON NORMALS: no rashes or lesions noted and no wounds GENERAL SKIN EXAM: no rashes or lesions noted Course Vital Signs: Vital signs: Vital Signs Temperature 98.4 F 12/31/22 02:47 Pulse Rate 65 12/31/22 04:12 Respiratory Rate 18 12/31/22 04:12 Blood Pressure 118/82 12/31/22 03:00 Pulse Oximetry 97 12/31/22 04:12 Oxygen Delivery Me thod Room Air 12/31/22 04:12 MDM - Psych Medical Decision Making Patient presents here with suicidal ideations patient is medically cleared I spoke to psychiatrist will admit at this time. Medical Records I reviewed the patient's medical records. Lab Data I reviewed the patient's lab results. 12/31/22 02:56 12/31/22 02:56 Laboratory Results WBC 6.73 10^3/uL (3.29-11.43) 12/31/22 02:56 RBC 4.04 10^6/uL (3.85-5.65) 12/31/22 02:56 Hgb 13.60 g/dL (11.27-16.99) 12/31/22 02:56 Hct 40.4 % (36-47) 12/31/22 02:56 MCV 100.0 fl (85-98) H 12/31/22 02:56 MCH 33.7 pg (27-33) H 12/31/22 02:56 MCHC 33.7 g/dL (30-55) 12/31/22 02:56 RDW 13.9 % (12.1-15.1) 12/31/22 02:56 Plt Count 422 10^3/cmm (157-399) H 12/31/22 02:56 MPV 9.1 fL (7.4-10.4) 12/31/22 02:56 Neut % (Auto) 54.7 % 12/31/22 02:56 Lymph % (Auto) 33.0 % 12/31/22 02:56 [place] % (Auto) 6.2 % 12/31/22 02:56 Eos % (Auto) 3.9 % 12/31/22 02:56 Baso % (Auto) 1.8 % 12/31/22 02:56 Neut # (Auto) 3.68 10^3/uL (1.8-7.7) 12/31/22 02:56 Lymph # (Auto) 2.2 10^3/uL (0.8-4.8) 12/31/22 02:56 [place] # (Auto) 0.4 10^3/uL (0.2-0.9) 12/31/22 02:56 Eos # (Auto) 0.3 10^3/uL (0.0-0.8) 12/31/22 02:56 Baso # (Auto) 0.1 10^3/uL (0.0-0.1) 12/31/22 02:56 Nucleated RBC % (auto) 0 % 12/31/22 02:56 Nucleated RBCs # 0.0 /100WBC 12/31/22 02:56 Sodium 144 mmol/L (136-145) 12/31/22 02:56 Potassium 3.2 mmol/L (3.5-5.1) L 12/31/22 02:56 Chloride 104 mmol/L (98-107) 12/31/22 02:56 Carbon Dioxide 27 mmol/L (22-29) 12/31/22 02:56 Anion Gap 16.2 (5-19) 12/31/22 02:56 BUN 5 mg/dL (6-20) L 12/31/22 02:56 Creatinine 0.6 mg/dL (0.5-0.9) 12/31/22 02:56 GFR Calculation 120.8 mL/min (90-130) 12/31/22 02:56 Glucose 128 mg/dL (65-115) H 12/31/22 02:56 Calculated Osmolality 297 mOsm/kg (285-295) H 12/31/22 02:56 Calcium 8.9 mg/dL (8.5-10.5) 12/31/22 02:56 Total Bilirubin 0.3 mg/dL (0.15-1.2) 12/31/22 02:56 AST 50 U/L (0-32) H 12/31/22 02:56 ALT 33 U/L (0-33) 12/31/22 02:56 Alkaline Phosphatase 98 U/L (35-105) 12/31/22 02:56 Total Protein 7.0 g/dL (6.6-8.7) 12/31/22 02:56 Albumin 4.4 g/dL (3.5-5.2) 12/31/22 02:56 Globulin 2.6 g/dL (1.3-4.6) 12/31/22 02:56 Salicylates < 0.3 mg/dL (3-10) L 12/31/22 02:56 Acetaminophen < 5.0 ug/mL (10-30) L 12/31/22 02:56 Ethyl Alcohol 112 mg/dL (0-10) H 12/31/22 02:56 Discharge Plan Discharge Patient Disposition: Admitted As Inpatient Clinical Impression: Suicidal ideation Condition: Stable Coding Level of Care Code ED [employer]ical [employer] for [employer]
[2022-12-31] MEDS: haloperidol inj 5 mg/mL INJ 1 mL IM (03:05)
[2022-12-31] MEDS: LORazepam 2 mg/mL INJ 1 mL IM (03:05)
[2022-12-31 03:12] LABS: Basophils # 0.1 10^3/uL (0.0-0.1); Basophils % 1.8 %; Eosinophils # 0.3 10^3/uL (0.0-0.8); Eosinophils % 3.9 %; Hematocrit 40.4 % (36-47); Lymphocytes # 2.2 10^3/uL (0.8-4.8); Mean Corpuscular HGB Conc 33.7 g/dL (30-55); Mean Corpuscular Hemoglobin 33.7 pg (27-33); Mean Platelet Volume 9.1 fL (7.4-10.4); Monocytes # 0.4 10^3/uL (0.2-0.9); Monocytes % 6.2 %; Neutrophils # 3.68 10^3/uL (1.8-7.7); Neutrophils % 54.7 %; Nucleated Red Blood Cells % 0 %; Platelet Count 422 10^3/cmm (157-399); Red Blood Count 4.04 10^6/uL (3.85-5.65); Red Cell Distribution Width 13.9 % (12.1-15.1); White Blood Count 6.73 10^3/uL (3.29-11.43)
--- NOTE | 2022-12-31 03:14 | PC.NURSE ---
Pt served with copy of 96 hour hold by this RN and security. Pt resistive to care at this time. Denies questions or further need for information.
[2022-12-31 03:24] LABS: Acetaminophen < 5.0 ug/mL (10-30); Alanine Aminotransferase 33 U/L (0-33); Albumin Level 4.4 g/dL (3.5-5.2); Alcohol Level 112 mg/dL (0-10); Alkaline Phosphatase 98 U/L (35-105); Anion Gap 16.2 (5-19); Aspartate Amino Transferase 50 U/L (0-32); Blood Urea Nitrogen 5 mg/dL (6-20); Calcium 8.9 mg/dL (8.5-10.5); Carbon Dioxide 27 mmol/L (22-29); Chloride 104 mmol/L (98-107); Globulin 2.6 g/dL (1.3-4.6); Glomerular Filtration Rate 120.8 mL/min (90-130); Glucose 128 mg/dL (65-115); Osmolality Calculated 297 mOsm/kg (285-295); Potassium 3.2 mmol/L (3.5-5.1); Salicylate < 0.3 mg/dL (3-10); Sodium 144 mmol/L (136-145); Total Bilirubin 0.3 mg/dL (0.15-1.2)
--- NOTE | 2022-12-31 04:13 | PC.NURSE ---
PATIENT IS RESTING IN BED WITH EQUAL AND EVEN RESPIRATIONS. NO FURTHER NEEDS AT THIS TIME.
--- NOTE | 2022-12-31 06:07 | PC.NURSE ---
PATIENT RESTING IN BED, VITALS TAKEN. NURSE ASKED PATIENT TO PROVIDE A URINE SAME AND PATIENT REFUSED.
--- NOTE | 2022-12-31 07:53 | PC.PHAR ---
PT STATES SHE TAKES NO RX OR OTC MEDICATIONS-EXT MED HISTORY SHOWS LAST FILLED 09/27/22 BUPROPION ER/SR 150MG BID -HYDROXYZINE HCL 50MG TID PRN AX -TRAZODONE 50MG HS FILLED 05/15/22-
--- NOTE | 2022-12-31 09:45 | PC.NURSE ---
Patient sleeping at this time. I took her breakfast tray and placed it in the room if she would like it when she wakes up.
[2022-12-31 10:35] LABS: HCG Qualitative Urine. Negative (Negative)
[2022-12-31 10:42] LABS: Amphetamines Screen Urine Negative (Negative); Barbiturates Screen Urine Negative (Negative); Benzodiazepines Screen Urine Positive (Negative); Cocaine Screen Urine Negative (Negative); Opiate Screen Urine Negative (Negative); PCP Screen Urine Negative (Negative); THC Screen Urine Positive (Negative)
[2023-01-01 06:00] VITALS: BP 103/65; PULSE 79; RESP 17; O2SAT 99
[2023-01-01] MEDS: multivitamin therapeutic Tablet 1 TAB PO (09:23)
[2023-01-01] MEDS: thiamine 100 mg Tablet PO (09:23)
[2023-01-01] MEDS: folic acid 1 mg Tablet PO (09:23)
--- NOTE | 2023-01-01 09:49 | PC.NURSE ---
During morning assessment, patient tearful. Patient reports anxiety and depression. Patient denies thoughts of self-harm, HI, and AVH.
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
[2023-01-01 14:00] VITALS: BP 117/83; PULSE 95; RESP 16; TEMP 37.2; O2SAT 90
[2023-01-01] MEDS: lurasidone 80 mg Tablet 40 MG PO (17:42)
[2023-01-01] MEDS: ondansetron 4 MG Tablet PO (18:44)
[2023-01-01 19:57] VITALS: BP 122/79; PULSE 70; RESP 16; TEMP 37.1; O2SAT 100
[2023-01-02] MEDS: trazodone 50 mg Tablet PO (00:30)
[2023-01-02 06:00] VITALS: BP 101/68; PULSE 42; RESP 16; O2SAT 98
[2023-01-02] MEDS: folic acid 1 mg Tablet PO (09:11)
[2023-01-02] MEDS: thiamine 100 mg Tablet PO (09:11)
[2023-01-02] MEDS: multivitamin therapeutic Tablet 1 TAB PO (09:11)
[2023-01-02 14:00] VITALS: BP 91/60; PULSE 59; RESP 14; TEMP 36.6; O2SAT 99
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
[2023-01-02] MEDS: lurasidone 80 mg Tablet 40 MG PO (17:14)
[2023-01-02 20:25] VITALS: BP 107/52; PULSE 73; RESP 16; TEMP 37.1; O2SAT 100
[2023-01-02] MEDS: prazosin 1 mg Capsule 2 MG PO (20:56)
[2023-01-03 06:00] VITALS: BP 106/65; PULSE 56; RESP 16; O2SAT 96
[2023-01-03] MEDS: multivitamin therapeutic Tablet 1 TAB PO (09:20)
[2023-01-03] MEDS: folic acid 1 mg Tablet PO (09:20)
[2023-01-03] MEDS: thiamine 100 mg Tablet PO (09:20)
--- NOTE | 2023-01-03 12:12 | W.PM.NPUPNS ---
Subjective NPU Subjective: Patient presented today reporting that she is doing much better with the medications that Dr. Cantu initiated. She reports that her sleep is much better and this is the first time she is gone without significant nightmares during the night in a long time. We discussed her desire not to be in the hospital for any extended time and we talked about her being on a hold and having to determine whether to extend the hold tomorrow or discharge her by sometime on Saturday. We discussed the fact that discharging by Saturday is the likely direction we are going. Mental Status Exam MSE Comments: This is a well-nourished well-developed white female in hospital scrubs with adequate grooming and eye contact. No abnormal movements except for mild psychomotor retardation. Cooperative with exam and no acute distress. Speech was slightly decreased rate normal volume mood described as better, affect slightly subdued. Thought process organized. Thought content: Patient denied suicidal or homicidal ideation, there were no delusions reported or noted, she denied any auditory or visual hallucinations. Attention and concentration appeared intact and memory appeared reliable but none were formally tested. She is alert and oriented x3. Insight, judgment and impulse control. Fair. Vitals/I&O/Wt Last Vital Signs Temp 98.7 F 01/02/23 20:25 Pulse 56 L 01/03/23 06:00 Resp 16 01/03/23 06:00 BP 106/65 01/03/23 06:00 Pulse Ox 96 01/03/23 06:00 O2 Del Method Room Air 01/01/23 14:00 Data NPU 12/31/22 02:56 12/31/22 02:56 A&P Assessment and plan (1) Bipolar disorder with depression: (2) Anxiety: (3) Suicidal ideation: (4) Alcohol abuse: (5) PTSD (post-traumatic stress disorder): Plan This is a 27-year-old female with past history of multiple hospitalizations for suicidal ideation who presents with depression in the context of its use of alcohol. Plan: 1. Continue Latuda 40mg after dinner to target bipolar depression and titrate upwards in 1-2 days. Added prazosin to target nightmares associated with PTSD. 2. Continue every 15 minute checks for safety. 3. Encourage individual, group and milieu therapies. 4. Encourage sober living treatment after discharge at the highest level of care to which she is willing to commit. 5. [facility] protocol for alcohol withdrawal. Involuntary Hold Information 96 Hour Hold: 96 Hour Involuntary Admission: Yes 96 Hour Hold Ending Date: 01/07/23 96 Hour Hold Ending Time: 00:01 Attestations NPU Medical Necessity Statement*: Inpatient hospitalization is medically necessary and the clinically appropriate intervention at this time. We will initiate medications and make changes as indicated. The patient's likely length of stay is 2-4 days. Coding Level of Care Code Acute Code for [facility] Diagnoses Bipolar disorder with depression F31.9 Anxiety F41.9 Suicidal ideation R45.851 Alcohol abuse F10.10 PTSD (post-traumatic stress disorder) F43.10
[2023-01-03 14:00] VITALS: BP 119/83; PULSE 57; RESP 15; TEMP 36.8; O2SAT 98
[2023-01-03] MEDS: lurasidone 80 mg Tablet 40 MG PO (17:48)
[2023-01-03 20:15] VITALS: BP 110/74; PULSE 61; RESP 16; TEMP 37.1; O2SAT 97
[2023-01-03] MEDS: prazosin 1 mg Capsule 2 MG PO (20:17)
--- NOTE | 2023-01-04 06:38 | PC.NURSE ---
pt resting resp 18
[2023-01-04] MEDS: thiamine 100 mg Tablet PO (08:11)
[2023-01-04] MEDS: multivitamin therapeutic Tablet 1 TAB PO (08:11)
[2023-01-04] MEDS: folic acid 1 mg Tablet PO (08:11)
[2023-01-04 14:00] VITALS: BP 117/80; PULSE 78; RESP 18; TEMP 37.1; O2SAT 97
[2023-01-04] MEDS: blistex lip oint 7 gm Tube 1 APPLIC TOPICAL (17:52)
--- NOTE | 2023-01-04 17:57 | W.PM.NPUPNS ---
Subjective NPU Subjective: Patient presented today continuing to report ongoing improvement and doing well with the medications. We worked with the treatment team to make sure that she had appointments in place for outpatient follow-up. She continued to endorse vast improvement in her sleep and no side effects from the medications. We discussed plan for discharge in the morning. Mental Status Exam MSE Comments: This is a well-nourished well-developed white female in hospital scrubs with adequate grooming and eye contact. No abnormal movements except for mild psychomotor retardation. Cooperative with exam and no acute distress. Speech was slightly decreased rate normal volume mood described as better, affect slightly subdued. Thought process organized. Thought content: Patient denied suicidal or homicidal ideation, there were no delusions reported or noted, she denied any auditory or visual hallucinations. Attention and concentration appeared intact and memory appeared reliable but none were formally tested. She is alert and oriented x3. Insight, judgment and impulse control. Fair. Vitals/I&O/Wt Last Vital Signs Temp 98.6 F 01/04/23 19:35 Pulse 62 01/04/23 19:35 Resp 18 01/04/23 19:35 BP 109/77 01/04/23 19:35 Pulse Ox 97 01/04/23 19:35 O2 Del Method Room Air 01/04/23 19:35 Data NPU 12/31/22 02:56 12/31/22 02:56 A&P Assessment and plan (1) Bipolar disorder with depression: (2) Anxiety: (3) Suicidal ideation: (4) Alcohol abuse: (5) PTSD (post-traumatic stress disorder): Plan This is a 27-year-old female with past history of multiple hospitalizations for suicidal ideation who presents with depression in the context of its use of alcohol. Plan: 1. Continue Latuda 40mg after dinner to target bipolar depression and titrate upwards in 1-2 days. Added prazosin to target nightmares associated with PTSD. 2. Continue every 15 minute checks for safety. 3. Encourage individual, group and milieu therapies. 4. Encourage sober living treatment after discharge at the highest level of care to which she is willing to commit. 5. [facility] protocol for alcohol withdrawal. 6. Tentative plan for discharge tomorrow. Involuntary Hold Information 96 Hour Hold: 96 Hour Involuntary Admission: Yes 96 Hour Hold Ending Date: 01/07/23 96 Hour Hold Ending Time: 00:01 Attestations NPU Medical Necessity Statement*: Inpatient hospitalization is medically necessary and the clinically appropriate intervention at this time. We will initiate medications and make changes as indicated. The patient's likely length of stay is days. Coding Level of Care Code Acute Code for [facility] Diagnoses Bipolar disorder with depression F31.9 Anxiety F41.9 Suicidal ideation R45.851 Alcohol abuse F10.10 PTSD (post-traumatic stress disorder) F43.10
[2023-01-04] MEDS: lurasidone 80 mg Tablet 40 MG PO (18:19)
[2023-01-04 19:35] VITALS: BP 109/77; PULSE 62; RESP 18; TEMP 37; O2SAT 97
[2023-01-04] MEDS: prazosin 1 mg Capsule 2 MG PO (19:45)
[2023-01-05 06:00] VITALS: BP 102/66; PULSE 54; RESP 16; TEMP 36.7; O2SAT 97
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
[2023-01-05 07:24] VITALS: BP 102/66; PULSE 54; RESP 16; TEMP 36.7; O2SAT 97
[2023-01-05 08:16] VITALS: BP 102/66; PULSE 54; RESP 16; TEMP 36.7; O2SAT 97
[2023-01-05] MEDS: folic acid 1 mg Tablet PO (08:33)
[2023-01-05] MEDS: multivitamin therapeutic Tablet 1 TAB PO (08:33)
[2023-01-05] MEDS: thiamine 100 mg Tablet PO (08:33)
--- NOTE | 2023-01-05 09:29 | PC.NURSE ---
written discharge instruction discussed and left with patient. pt states understanding and compliance. pt medication deliver to pt, pt left via spouse and pov.
== END 2023-01-05 09:31 | disposition home or self-care (01) | DRG 885 ==
LOC: ER 05:00 → NP 15:22
PROVIDERS: Admitting Provider Psychiatry & Neurology Psychiatry; Emergency Provider Emergency Medicine; Visit Provider Psychiatry & Neurology Psychiatry
DX: F31.30 Bipolar disorder, current episode depressed, mild or moderate severity, unspecified (principal); R45.851 Suicidal ideations; F10.10 Alcohol abuse, uncomplicated; F10.129 Alcohol abuse with intoxication, unspecified; Y90.5 Blood alcohol level of 100-119 mg/100 ml; F12.90 Cannabis use, unspecified, uncomplicated; F43.10 Post-traumatic stress disorder, unspecified; F41.9 Anxiety disorder, unspecified; Z81.1 Family history of alcohol abuse and dependence; Z81.8 Family history of other mental and behavioral disorders; F17.200 Nicotine dependence, unspecified, uncomplicated
CPT/HCPCS: 36415; 80053; 80306; 80307; 81025; 85025; 96372; 97150; 97165; 99238; 99285; J1630; J2060; Q0162

== ENCOUNTER 2024-04-18 09:23 | Emergency (ER) | payer MEDICAID, SELFPAY ==
[2024-04-18 09:25] VITALS: BP 110/75; PULSE 106; RESP 17; TEMP 37.2; O2SAT 97; BMI 18.6
--- NOTE | 2024-04-18 09:31 | ECG_ITS ---
[facility] Test Date: 2024-04-18 Pat Name: Kinsey Owusuer Department: Room: Gender: Female Sterile Processing Technician: : 1995 Requested By: Tamra Falk Order Number: [id number] Carlota MD: John Nash M.D. Measurements Intervals [place] Rate: 55 P: 33 [place]: 132 QRS: 60 QRSD: 92 T: 39 QT: 441 QTc: 423 Interpretive Statements SINUS BRADYCARDIA INCOMPLETE RIGHT BUNDLE BRANCH BLOCK [90+ ms QRS DURATION, TERMINAL R IN V1/V2, 40+ ms S IN I/aVL/V4/V5/V6] NONSPECIFIC T-WAVE ABNORMALITY Compared to ECG 10/05/2021 17:23:21 T-wave abnormality now present Sinus rhythm no longer present Electronically Signed On 04-20-2024 20:22:09 LEGAL ACTIVITY ADJUDICATOR by John Nash M.D. [id number]
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
[2024-04-18 10:07] LABS: Bilirubin Urine 2+ (Negative); Blood Urine 2+ (Negative); Glucose Urine UA Negative (Normal); Ketones Urine 1+ (Negative); Leukocyte Esterase Urine 2+ (Negative); Nitrate Urine Positive (Negative); Protein Urine 2+ (Negative); Specific Gravity, Urine 1.029 (1.005-1.030); Urine Appearance Cloudy (CLEAR)
[2024-04-18 10:12] LABS: Add Urine Microscopic? YES; Bacteria Urine 2+ /hpf; Hyaline Casts Urine 4.95 /lpf; RBC Urine 21-50 /hpf (0-2); Squamous Epithelial Cell Urine 0-5 /hpf (0-5); WBC Urine >100 /hpf (0-5)
[2024-04-18 10:13] LABS: Amphetamines Screen Urine Negative (Negative); Barbiturates Screen Urine Negative (Negative); Benzodiazepines Screen Urine Negative (Negative); Cocaine Screen Urine Negative (Negative); Opiate Screen Urine Negative (Negative); PCP Screen Urine Negative (Negative); THC Screen Urine Positive (Negative)
[2024-04-18] MEDS: acetaminophen 1,000 MG/100 ML PIGGYBACK 400 MG IV (10:15)
[2024-04-18] MEDS: ondansetron 2 mg/ML SDV 2 mL 4 MG IVP (10:15)
[2024-04-18] MEDS: sodium chloride 0.9% 1,000 ML 999 ML IV (10:15)
[2024-04-18 10:25] LABS: Urine Color Orange (Yellow)
[2024-04-18 10:26] LABS: UA Slide Review UA Slide Review Perf
[2024-04-18 10:27] LABS: Add Urine Culture? Yes; Mucus Urine 1+ /hpf
[2024-04-18 10:40] LABS: Basophils # 0.1 10^3/uL (0.0-0.1); Basophils % 0.9 %; Eosinophils % 0.1 %; Hematocrit 46.6 % (36-47); Lymphocytes # 1.2 10^3/uL (0.8-4.8); Lymphocytes % 7.4 %; Mean Corpuscular HGB Conc 34.3 g/dL (30-55); Mean Corpuscular Hemoglobin 35.3 pg (27-33); Mean Corpuscular Volume 102.9 fl (85-98); Mean Platelet Volume 9.6 fL (7.4-10.4); Monocytes # 1.1 10^3/uL (0.2-0.9); Neutrophils # 13.15 10^3/uL (1.8-7.7); Neutrophils % 84.2 %; Nucleated Red Blood Cells % 0 %; Platelet Count 501 10^3/cmm (157-399); Red Blood Count 4.53 10^6/uL (3.85-5.65); White Blood Count 15.62 10^3/uL (3.29-11.43)
[2024-04-18 10:52] LABS: HCG, Serum Qual Negative (Negative)
[2024-04-18 10:57] LABS: Alanine Aminotransferase 217 U/L (0-33); Albumin Level 4.3 g/dL (3.5-5.2); Alcohol Level 66 mg/dL (0-10); Alkaline Phosphatase 181 U/L (35-105); Blood Urea Nitrogen 4 mg/dL (6-20); Calcium 10.1 mg/dL (8.5-10.5); Carbon Dioxide 23 mmol/L (22-29); Chloride 95 mmol/L (98-107); Creatinine Clr Calc Pharmacy 125.4991; Globulin 3.3 g/dL (1.3-4.6); Glomerular Filtration Rate 119.9 mL/min (90-130); Glucose 133 mg/dL (65-115); Lipase 10 U/L (13-60); Osmolality Calculated 283 mOsm/kg (285-295); Sodium 137 mmol/L (136-145); Total Bilirubin 1.2 mg/dL (0.15-1.2); Total Protein 7.6 g/dL (6.6-8.7)
[2024-04-18 10:58] LABS: Anion Gap 22.4 (5-19); Aspartate Amino Transferase 191 U/L (0-32); Potassium 3.4 mmol/L (3.5-5.1)
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
[2024-04-18] MEDS: diphenhydrAMINE 50 mg/mL SDV 1mL 25 MG IVP (12:26)
[2024-04-18] MEDS: prochlorperazine 10 mg/2 mL Inj IVP (12:26)
[2024-04-18] MEDS: iohexol 350 mg/mL 500 mL Btl (per mL) IV (12:34)
[2024-04-18] MEDS: cefTRIAXone 1,000 mg SDV 1000 MG IVP (14:36)
[2024-04-18 14:40] VITALS: BP 114/70; PULSE 58; O2SAT 98
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
== END 2024-04-18 14:46 | disposition home or self-care (01) ==
PROVIDERS: Emergency Provider Physician Assistant
DX: R11.10 Vomiting, unspecified (principal); R10.84 Generalized abdominal pain; N39.0 Urinary tract infection, site not specified; S20.02XA Contusion of left breast, initial encounter; Y04.2XXA Assault by strike against or bumped into by another person, initial encounter
CPT/HCPCS: 36415; 71045; 71260; 74177; 80053; 80306; 80307; 81001; 83690; 84703; 85025; 86850; 86900; 87077; 87086; 87186; 93005; 99285; J0131; J0696; J0780; J1200; J2405; J7030

== ENCOUNTER 2024-11-12 16:39 | Emergency (ER) | payer MEDICAID, SELFPAY ==
--- OUTSIDE RECORDS SUMMARY | 2024-11-12 16:45 | XMS_ITS | Clinical Summary ---
Author Organization [facility] Address [address] [place] [address] Care Team Providers Care Bulldozer Press Operator Name Role Phone Unavailable Primary Care Provider Unavailabl e Allergies Active Allergy Reactions Criticality Noted Date Comments Hymenoptera Allergenic Extract Swelling Low 10/08/2015 Latex Anaphylaxis High 12/11/2016 Metronidazole Seizure High 04/25/2014 Risperidone Other (See Comments) 10/08/2015 tremors Venom-Wasp Swelling Low 10/08/2015 Medications No known medications Active Problems Problem Noted Date Diagnosed Date Tobacco use 04/09/2016 Abdominal pain, right lower quadrant 11/05/2008 Immunizations Immunization Administration Dates Next Due (M-M-R II/PRIORIX)(12 MO UP) MEASLES, MUMPS AND RUBELLA VIRUS VACCINE, 0.5 ML IM/SUBCUT 12/16/2000,12/17/1999,09/13/1997 (VARIVAX)(12 MOS UP)VARICELL A VIRUS VACCINE (PF) 0.5 ML, SUB CUT 12/16/2000,12/17/1999 Dt Dtp Dtap Vaccine 12/16/2000, 0,04/04/1998,1997,1996,1996 HIB, Unspecified Formulation 04/04/1998, 09/13/1997,1996,1996 Hepatitis B Vaccine 09/13/1997,1996,1996 IPV/OPV 12/16/2000, 0,09/13/1997,1996,1996 Family History Medical History Relation Name Comments Healthy Father Cancer Mother Healthy Mother Relation Name Status Comments Father Alive Mother Alive Social History Tobacco Use Types Packs/Day Years Used Date Smoking Tobacco: Every Day Cigarettes Smokeless Tobacco: Never Alcohol Use Standard Drinks/Week Comments Yes 0 (1 standard drink = 0.6 oz pur e alcohol) Comments No Sex and Gender Information Value Date Recorded Sex Assigned at Not on file Legal Sex 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 Gender Identity Not on file Sexual Orientation Not on file Occupation Industry Job Start Date Job End Date Not on file Not on file Not on file Not on file Last Filed Vital Signs Vital Sign Reading Time Taken Comments Blood Pressure 100/68 08/29/2020 2:00 PM CDT Pulse 68 03/09/2020 5:24 PM MUSSEL OPENER Temperature 36.3 C (97.4 F) 08/29/2020 12:56 PM CDT Respiratory Rate 17 08/29/2020 2:00 PM CDT Oxygen Saturation 99% 08/29/2020 2:00 PM CDT Inhaled Oxygen Concentration - - Weight 57.6 kg (127 lb) 08/29/2020 12:56 PM CDT Height 167.6 cm (5' 6 ) 08/29/2020 12:56 PM CDT Body Mass Index 20.5 08/29/2020 12:56 PM CDT Plan of Treatment Health Maintenance Due Date Last Done Comments DTAP/TDAP/TD VACCINES (6 - Tdap) 08/22/2007 12/16/2000, 12/17/1999, 04/04/1998, Additional history exists HPV VACCINES (1 - 3-dose series) 08/22/2011 CERVICAL CANCER SCREENING 2017 HPV/Cotest (21-29) 2017 PAP SMEAR 2017 INFLUENZA VACCINE (#1) 2024 HEPATITIS B VACCINES Completed 09/13/1997, 1996, 1996 CHLAMYDIA SCREENING (ANNUAL) 11-24 YEARS Discontinued 01/06/2017, 11/06/2015 Procedures Procedure Name Priority Date/Time Associated Diagnosis Comments GC/CHLAMYDIA, GENITAL Stat 01/06/2017 3:08 AM CDT from Last 3 Months or Most Recently Relevant to Health Maintenance Results * GC/CHLAMYDIA, GENITAL (01/06/2017 3:08 AM CDT) CHLAMYDIA DNA AMPLIFICATION NOT DETECTED Not Detected 01/06/2017 5:05 PM CDT [facility] GC DNA AMPLIFICATION NOT DETECTED Not Detected 01/06/2017 5:05 PM CDT [facility] Genital SPECIMEN FROM VAGINA / Unknown Collection / Unknown 01/06/2017 3:08 AM CDT 01/06/2017 3:18 AM CDT Narrative [facility] - 01/06/2017 5:05 PM CDT Results should not be used for the evaluation of suspected sexual abuse or for other medico-legal indications. The only legally accepted results are from culture. Results cannot be used to assess therapeutic success or failure since nucleic acids may persist following antimicrobial therapy. us Charlotte Phillip DO [employer] ORDERABLES COM Final Result [facility] CLIA# [id number] [facility] [place] [address] from Last 3 Months or Most Recently Relevant to Health Maintenance Advance Directives For more information, please contact: [phone] * Full Code (Latest Code Status on File) Date Activated Date Inactivated Comments 10/30/2008 12:26 AM 11/02/2008 11:57 AM
--- OUTSIDE RECORDS SUMMARY | 2024-11-12 16:45 | XMS_ITS | Encounter Summary ---
Author Organization [facility] Address [address] [place] [address] Care Team Providers Care Impregnator And Drier Helper Name Role Phone Manuela Quiroga SHANK BURNISHER Primary Care Provider [phone] Encounter Details Date Type Department Care Team (Latest Contact Info) Description 06/06/2004 Outpatient Historical [facility] Occupational Medicine [address] [place] [address] Uriel Kim MD [address] [place] [address] SUPPUR OTITIS MEDIA NOS (Primary Dx) Social History Tobacco Use Types Packs/Day Years Used Date Smoking Tobacco: Never Assessed Comments Unknown Sex and Gender Information Value Date Recorded Sex Assigned at Not on file Legal Sex Female 4:40 AM CHEMIST PROTEINS Gender Identity Not on file Sexual Orientation Not on file documented as of this encounter Plan of Treatment Not on file documented as of this encounter Visit Diagnoses Diagnosis Unspecified suppurative otitis media- Primary documented in this encounter Care Teams Impregnator And Drier Helper Relationship Specialty Start Date End Date Manuela Quiroga NP [address] [place] [address] PCP - General NURSE PRACTITIONER 10/08/15 08/28/20 documented as of this encounter
--- OUTSIDE RECORDS SUMMARY | 2024-11-12 16:45 | XMS_ITS | Encounter Summary ---
Author Organization [facility] Address [address] [place] [address] Care Team Providers Care Steamer Operator Name Role Phone Manuela Quiroga NP Primary Care Provider [phone] Encounter Details Date Type Department Care Team (Latest Contact Info) Description 06/01/2005 Outpatient Historical [facility] Occupational Medicine [address] [place] [address] Lauryn Beavers MD NO ADDRESS ON FILE STREP SORE THROAT (Primary Dx) Social History Tobacco Use Types Packs/Day Years Used Date Smoking Tobacco: Never Assessed Comments Unknown Sex and Gender Information Value Date Recorded Sex Assigned at Not on file Legal Sex Female 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
--- OUTSIDE RECORDS SUMMARY | 2024-11-12 16:45 | XMS_ITS | Encounter Summary ---
Author Organization [facility] Address [address] [place] [address] Care Team Providers Care Salary And Wage Administrator Name Role Phone Manuela Quiroga SPUD SORTER Primary Care Provider [phone] Encounter Details Date Type Department Care Team (Latest Contact Info) Description 11/20/2006 Outpatient Historical [facility] Occupational Medicine [address] [place] [address] Rohan May, PA [address] [place] [address] Cellulitis and Abscess of Leg, except Foot (Primary Dx) Social History Tobacco Use Types Packs/Day Years Used Date Smoking Tobacco: Never Assessed Comments Unknown Sex and Gender Information Value Date Recorded Sex Assigned at Not on file 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 [place] [address] PCP - General NURSE PRACTITIONER 10/08/15 08/28/20 documented as of this encounter
--- OUTSIDE RECORDS SUMMARY | 2024-11-12 16:45 | XMS_ITS | Encounter Summary ---
Author Organization [facility] Address [address] [place] [address] Care Team Providers Care Production Technologist Name Role Phone Manuela Quiroga CHAIR PAD MAKER Primary Care Provider [phone] Encounter Details Date Type Department Care Team (Latest Contact Info) Description 06/16/2004 Outpatient Historical [facility] Occupational Medicine [address] [place] [address] Uriel Kim MD [address] [place] [address] SUPPUR OTITIS MEDIA NOS (Primary Dx) Social History Tobacco Use Types Packs/Day Years Used Date Smoking Tobacco: Never Assessed Comments Unknown Sex and Gender Information Value Date Recorded Sex Assigned at Not on file Legal Sex Female 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
--- OUTSIDE RECORDS SUMMARY | 2024-11-12 16:45 | XMS_ITS | Encounter Summary ---
Author Organization [facility] Address [address] [place] [address] Care Team Providers Care Varnishing Machine Operator Name Role Phone Manuela Quiroga UNDERWATER PHOTOGRAPHER Primary Care Provider [phone] Encounter Details Date Type Department Care Team (Latest Contact Info) Description 07/19/2005 Outpatient Historical [facility] Occupational Medicine [address] [place] [address] Uriel Kim MD [address] [place] [address] Torticollis, Unspecified (Primary Dx) Social History Tobacco Use Types Packs/Day Years Used Date Smoking Tobacco: Never Assessed Comments Unknown Sex and Gender Information Value Date Recorded Sex Assigned at Not on file Legal Sex Female 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
--- OUTSIDE RECORDS SUMMARY | 2024-11-12 16:45 | XMS_ITS | Encounter Summary ---
Author Organization [facility] Address [address] [place] [address] Care Team Providers Care Back Tender Insulation Board Name Role Phone Manuela Quiroga LOT BOSS Primary Care Provider [phone] Encounter Details Date Type Department Care Team (Latest Contact Info) Description 08/27/2005 Outpatient Historical [facility] Occupational Medicine [address] [place] [address] Uriel Kim MD [address] [place] [address] Abdominal Pain, Unspecified Site (Primary Dx); Pain in Joint, Site Unspecified Social History Tobacco Use Types Packs/Day Years Used Date Smoking Tobacco: Never Assessed Comments Unknown Sex and Gender Information Value Date Recorded Sex Assigned at Not on file 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
--- OUTSIDE RECORDS SUMMARY | 2024-11-12 16:45 | XMS_ITS | Encounter Summary ---
Author Organization [facility] Address [address] [place] [address] Care Team Providers Care Car Whacker Name Role Phone Manuela Quiroga BRANCH LENDING MANAGER Primary Care Provider [phone] Encounter Details Date Type Department Care Team (Latest Contact Info) Description 06/25/2005 Outpatient Historical [facility] Occupational Medicine [address] [place] [address] Uriel Kim MD [address] [place] [address] LYMPHADENITIS NOS (Primary Dx) Social History Tobacco Use Types Packs/Day Years Used Date Smoking Tobacco: Never Assessed Comments Unknown Sex and Gender Information Value Date Recorded Sex Assigned at Not on file Legal Sex Female 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
--- OUTSIDE RECORDS SUMMARY | 2024-11-12 16:45 | XMS_ITS | Encounter Summary ---
Author Organization [facility] Address [address] [place] [address] Care Team Providers Care Director Executive Communications Name Role Phone Manuela Quiroga COMPENSATION ANALYST Primary Care Provider [phone] Encounter Details Date Type Department Care Team (Latest Contact Info) Description 07/18/2005 Outpatient Historical [facility] Occupational Medicine [address] [place] [address] Uriel Kim MD [address] [place] [address] Torticollis, Unspecified (Primary Dx) Social History Tobacco Use Types Packs/Day Years Used Date Smoking Tobacco: Never Assessed Comments Unknown Sex and Gender Information Value Date Recorded Sex Assigned at Not on file Legal Sex Female 4:40 AM MANAGER COUNCIL Gender Identity Not on file Sexual Orientation Not on file documented as of this encounter Plan of Treatment Not on file documented as of this encounter Visit Diagnoses Diagnosis Torticollis, unspecified- Primary documented in this encounter Care Teams Director Executive Communications Relationship Specialty Start Date End Date Manuela Quiroga NP [address] [place] [phone] PCP - General NURSE PRACTITIONER 10/08/15 08/28/20 documented as of this encounter
--- OUTSIDE RECORDS SUMMARY | 2024-11-12 16:45 | XMS_ITS | Encounter Summary ---
Author Organization [facility] Address [address] [place] [address] Care Team Providers Care Global Cto Name Role Phone Manuela Quiroga WEB ANALYST Primary Care Provider [phone] Encounter Details Date Type Department Care Team (Latest Contact Info) Description 03/24/2003 Outpatient Historical [facility] Occupational Medicine [address] [place] [address] Uriel Kim MD [address] [place] [address] DERMATITIS NOS (Primary Dx); ACUTE PHARYNGITIS Social History Tobacco Use Types Packs/Day Years Used Date Smoking Tobacco: Never Assessed Comments Unknown Sex and Gender Information Value Date Recorded Sex Assigned at Not on file Legal Sex Female 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 [place] [address] PCP - General NURSE PRACTITIONER 10/08/15 08/28/20 documented as of this encounter
--- OUTSIDE RECORDS SUMMARY | 2024-11-12 16:45 | XMS_ITS | Encounter Summary ---
Author Organization [facility] Address [address] [place] [address] Care Team Providers Care Leather Sorter Name Role Phone Manuela Quiroga PRIVACY ANALYST Primary Care Provider [phone] Encounter Details Date Type Department Care Team (Latest Contact Info) Description 06/05/2005 Outpatient Historical [facility] Occupational Medicine [address] [place] [address] Uriel iKm MD [address] [place] [address] LYMPHADENITIS NOS (Primary Dx) Social History Tobacco Use Types Packs/Day Years Used Date Smoking Tobacco: Never Assessed Comments Unknown Sex and Gender Information Value Date Recorded Sex Assigned at Not on file Legal Sex Female 4:40 AM BIRD RAISER Gender Identity Not on file Sexual Orientation Not on file documented as of this encounter Plan of Treatment Not on file documented as of this encounter Visit Diagnoses Diagnosis Lymphadenitis, unspecified, except mesenteric- Primary documented in this encounter Care Teams Leather Sorter Relationship Specialty Start Date End Date Manuela Quiroga NP [address] [place] [address] PCP - General NURSE PRACTITIONER 10/08/15 08/28/20 documented as of this encounter
--- OUTSIDE RECORDS SUMMARY | 2024-11-12 16:45 | XMS_ITS | Encounter Summary ---
Author Organization [facility] Address [address] [place] [address] Care Team Providers Care Automatic Dry Starch Operator Name Role Phone Manuela Quiroga CITY COUNCILMAN Primary Care Provider [phone] Encounter Details Date Type Department Care Team (Latest Contact Info) Description 06/15/2005 Outpatient Historical [facility] Occupational Medicine [address] [place] [address] Uriel Kim MD [address] [place] [address] ACUTE URI NOS (Primary Dx); LYMPHADENITIS NOS Social History Tobacco Use Types Packs/Day Years Used Date Smoking Tobacco: Never Assessed Comments Unknown Sex and Gender Information Value Date Recorded Sex Assigned at Not on file Legal Sex Female 4:40 AM GOSPEL SINGER Gender Identity Not on file Sexual Orientation Not on file documented as of this encounter Plan of Treatment Not on file documented as of this encounter Visit Diagnoses Diagnosis Acute upper respiratory infections of unspecified site- Primary Lymphadenitis, unspecified, except mesenteric documented in this encounter Care Teams Automatic Dry Starch Operator Relationship Specialty Start Date End Date Manuela Quiroga NP [facility] [place] [address] PCP - General NURSE PRACTITIONER 10/08/15 08/28/20 documented as of this encounter
--- OUTSIDE RECORDS SUMMARY | 2024-11-12 16:45 | XMS_ITS | Encounter Summary ---
Author Organization [facility] Address [address] [place] [address] Care Team Providers Care Appeals Examiner Name Role Phone Manuela Quiroga NP Primary Care Provider [phone] Encounter Details Date Type Department Care Team (Latest Contact Info) Description 06/25/2006 Outpatient Historical [facility] Occupational Medicine [address] [place] [address] Uriel Kim MD [address] [place] [address] Unspecified Asthma (Primary Dx) Social History Tobacco Use Types Packs/Day Years Used Date Smoking Tobacco: Never Assessed Comments Unknown Sex and Gender Information Value Date Recorded Sex Assigned at Not on file Legal Sex Female 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
--- OUTSIDE RECORDS SUMMARY | 2024-11-12 16:45 | XMS_ITS | Encounter Summary ---
Author Organization [facility] Address [address] [place] [address] Care Team Providers Care Care Trainer Name Role Phone Manuela Quiroga GEOGRAPHIC INFORMATION SYSTEMS MANAGER Primary Care Provider [phone] Encounter Details Date Type Department Care Team (Latest Contact Info) Description 01/26/2005 Outpatient Historical [facility] Occupational Medicine [address] [place] [address] Lauryn Beavers MD NO ADDRESS ON FILE BENIGN PARXYSMAL VERTIGO (Primary Dx); ACUTE URI NOS Social History Tobacco Use Types Packs/Day Years Used Date Smoking Tobacco: Never Assessed Comments Unknown Sex and Gender Information Value Date Recorded Sex Assigned at Not on file 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
[2024-11-12 17:12] VITALS: BP 114/78; PULSE 89; RESP 18; TEMP 36.8; O2SAT 98; BMI 20.9
--- NOTE | 2024-11-12 17:35 | ED_ITS ---
Documented by User: Rian Samano DO 11/13/24 06:23 HPI - Allergic Reaction General: Chief complaint: Allergic Reaction Stated complaint: rash and swelling all over body Time Seen by Provider: 11/12/24 17:33 History of Present Illness: HPI narrative: 29-year-old female presents emergency ro om she got exposed to poison sumac yesterday she had a lot of facial swelling rash on her extremities. She used an EpiPen earlier today at around 11:00. She did not have any difficulty breathing does have significant amount of facial swelling to the point her eyes are nearly swollen shut. No wheezing or rhonchi. Associated symptoms: Deny abdominal pain Related Data Previous Rx's ?Medication ?Instructions ?Recorded ibuprofen 800 mg tablet 800 mg PO Q8H PRN pain #21 t abs 04/18/24 prednisone 5 mg tablet See Rx Instructions PO .COMP ANGELITA 11/12/24 #80 tabs Allergies Allergy/AdvReac Type Severity Reaction Status Date / Time latex Allergy ALGY-Anaphy Verified 12/31/22 07:53 laxis metronidazole (From Flagyl) Allergy ADR-Seizure Verified 12/31/22 07:53 risperidone (From Risperdal) Allergy ADR-Seizure Verified 12/31/22 07:53 Review of Systems Const: Denies: fever(s) or chills ENMT: Reports: other (Facial swelling) Card: Denies: chest pain Resp: Denies: dyspnea GI: Denies: abdominal pain : Denies: dysuria, urinary frequency or urinary urgency Musc: Denies: neck pain or back pain Skin/Breast: Denies: rash PFSH ED PFSH: Medical History Psychiatric care Viral syndrome No pertinent family history Surgical History H/O tubal ligation Social History Smoking and tobacco/nicotine status: current every day tobacco/nicotine user Alcohol intake: current Alcohol intake frequency: holidays/special occasions only Substance/Drug Use: never Current gender identity: Female Physical Exam Const: GENERAL APPEARANCE: cooperative ORIENTATION/CONSCIOUSNESS: Yes awake, Yes oriented to person, Yes oriented to place and Yes oriented to time HENMT: COMMON NORMALS: normocephalic, atraumatic and hearing grossly normal bilaterally HEAD & SCALP: normocephalic and atraumatic OTHER: Facial swelling particular around the eyelids and the right side of the face. No stridor Resp: COMMON NORMALS: normal respiratory effort, No retractions, No use of accessory muscles and clear to auscultation bilaterally AUSCULTATION: clear to auscultation bilaterally Cardio: COMMON NORMALS: regular rate, regular rhythm and No murmurs present (Cardio) RATE: regular rate RHYTHM: regular rhythm GI: COMMON NORMALS: Soft to palpation and No hepatosplenomegaly present AUSCULTATION: Yes normoactive bowel sounds PALPATION: Yes Soft to palpation, No Tenderness to palpation present (GI), No Guarding due to palpation present (GI) and Yes No hepatosplenomegaly present Extremity: COMMON NORMALS: normal to inspection, capillary refill normal, no clubbing, cyanosis or edema, no calf tenderness and no pedal edema Neuro: SENSORIUM/ORIENTATION: Yes oriented to person, Yes oriented to place and Yes oriented to time Skin: COMMON NORMALS: no rashes or lesions noted GENERAL SKIN EXAM: no rashes or lesions noted Course Vital Signs: Vital signs: Vital Signs Temperature 98.2 F 11/12/24 17:12 Pulse Rate 89 11/12/24 17:12 Respiratory Rate 18 11/12/24 17:12 Blood Pressure 114/78 11/12/24 17:12 Pulse Oximetry 98 11/12/24 17:12 MDM - Allergic Reaction Medical Decision Making Care signed out to Dr. Smith at change of shift. See final notes for diagnosis and disposition. Patient remained hemodynamically stable with her ED course. She will be prescri bed an extended taper of prednisone and discharged in stable condition. Discharge Plan Discharge Patient Disposition: Home Clinical Impression: Rhus dermatitis Condition: Stable Prescriptions: New prednisone 5 mg tablet See Rx Instructions .ROUTE .COMPLEX Qty: 80 0RF Rx Instructions: prednisone 5 mg: take 8 tablets (40 mg) on Days 1-4; 6 tablets (30 mg) on Days 5-8; then 4 tabs (20 mg) days 9-12; then 2 tabs (10 mg) days 13-16. No Action ibuprofen 800 mg tablet 800 mg PO Q8H PRN (Reason: pain) Qty: 21 0RF Discharge Orders: Discharge ED (Routine); Ordered 11/12/24 Ordered By: Fab Smith Discharge Diet: Usual diet Discharge Activity: Increase activity as tolerated Patient Instructions: Ricardo Bowers (ED), Patient Portal & Divina Instructions Activity Restrictions/Additional Instructions: it is very important that you complete the complete prescription of prednisone. if you stop early, the rash will likely come back. Print Language: Cymro Sign Out Sign Out Data: Patient Sign Out occurred on 11/12/24 at 18:07. Patient's care was discussed, and care was transferred from Rian Samano DO to Fab Smith MD. Coding Level of Care Code ED Fibre Composite Technician for Chg Fwd Documented by User: Fab Smith MD 11/13/24 04:35 HPI - Allergic Reaction General: Chief complaint: Allergic Reaction Stated complaint: rash and swelling all over body Time Seen by Provider: 11/12/24 17:33 Related Data Previous Rx's ?Medication ?Instructions ?Recorded ibuprofen 800 mg tablet 800 mg PO Q8H PRN pain #21 t abs 04/18/24 prednisone 5 mg tablet See Rx Instructions PO .COMP ANGELITA 11/12/24 #80 tabs Allergies Allergy/AdvReac Type Severity Reaction Status Date / Time latex Allergy ALGY-Anaphy Verified 12/31/22 07:53 laxis metronidazole (From Flagyl) Allergy ADR-Seizure Verified 12/31/22 07:53 risperidone (From Risperdal) Allergy ADR-Seizure Verified 12/31/22 07:53 [facility] ED PFSH: Medical History Psychiatric care Viral syndrome No pertinent family history Surgical History H/O tubal ligation Social History Smoking and tobacco/nicotine status: current every day tobacco/nicotine user Alcohol intake: current Alcohol intake frequency: holidays/special occasions only Substance/Drug Use: never Current gender identity: Female Course Vital Signs: Vital signs: Vital Signs Temperature 98.2 F 11/12/24 17:12 Pulse Rate 89 11/12/24 17:12 Respiratory Rate 18 11/12/24 17:12 Blood Pressure 114/78 11/12/24 17:12 Pulse Oximetry 98 11/12/24 17:12 MDM - Allergic Reaction Medical Decision Making Patient remained hemodynamically stable with her ED course. She will be prescribed an extended taper of prednisone and discharged in stable condition. No radiology studies performed this visit Discharge Plan Discharge Patient Disposition: Home Clinical Impression: Rhus dermatitis Condition: Stable Prescriptions: New prednisone 5 mg tablet See Rx Instructions .ROUTE .COMPLEX Qty: 80 0RF Rx Instructions: prednisone 5 mg: take 8 tablets (40 mg) on Days 1-4; 6 tablets (30 mg) on Days 5-8; then 4 tabs (20 mg) days 9-12; then 2 tabs (10 mg) days 13-16. No Action ibuprofen 800 mg tablet 800 mg PO Q8H PRN (Reason: pain) Qty: 21 0RF Discharge Orders: Discharge ED (Routine); Ordered 11/12/24 Ordered By: Fab Smith Discharge Diet: Usual diet Discharge Activity: Increase activity as tolerated Patient Instructions: Ricardo Bowers (ED), Patient Portal & Divina Instructions Activity Restrictions/Additional Instructions: it is very important that you complete the complete prescription of prednisone. if you stop early, the rash will likely come back. Print Language: Cymro Sign Out Sign Out Data: Patient Sign Out occurred on 11/12/24 at 18:07. Patient's care was discussed, and care was transferred from Rian Samano DO to Fab Smith MD. Coding Level of Care Code ED Fibre Composite Technician for Jessica Green
[2024-11-12] MEDS: diphenhydrAMINE 50 mg/mL SDV 1mL IVP (18:07)
[2024-11-12] MEDS: methylPREDNISolone sod succ 125 mg/2 mL INJ IVP (18:07)
== END 2024-11-12 19:01 | disposition home or self-care (01) ==
PROVIDERS: Emergency Provider Student in an Organized Health Care Education/Training Program
DX: L23.7 Allergic contact dermatitis due to plants, except food (principal)
CPT/HCPCS: 36415; 96374; 96375; 99284; J1200; J2919

== ENCOUNTER 2024-12-25 17:45 | Emergency (ER) | payer MEDICAID, SELFPAY ==
--- OUTSIDE RECORDS SUMMARY | 2024-12-25 17:50 | XMS_ITS | Encounter Summary ---
Author Organization [facility] Address [address] [place] [address] Care Team Providers Care Data Architect Manager Name Role Phone Manuela Quiroga TRANSPORTATION SOLUTIONS MANAGER Primary Care Provider [phone] Encounter Details Date Type Department Care Team (Latest Contact Info) Description 01/26/2005 Outpatient Historical [facility] Occupational Medicine [address] [place] [address] Lauryn Beavers MD NO ADDRESS ON FILE BENIGN PARXYSMAL VERTIGO (Primary Dx); ACUTE URI NOS Social History Tobacco Use Types Packs/Day Years Used Date Smoking Tobacco: Never Assessed Comments Unknown Sex and Gender Information Value Date Recorded Sex Assigned at Not on file Legal Sex Female 4:40 AM CERTIFIED DIABETES EDUCATOR Gender Identity Not on file Sexual Orientation Not on file documented as of this encounter Plan of Treatment Not on file documented as of this encounter Visit Diagnoses Diagnosis Benign paroxysmal positional vertigo- Primary Acute upper respiratory infections of unspecified site documented in this encounter Care Teams Data Architect Manager Relationship Specialty Start Date End Date Manuela Quiroga NP [address] [place] [phone] PCP - General NURSE PRACTITIONER 10/08/15 08/28/20 documented as of this encounter
--- OUTSIDE RECORDS SUMMARY | 2024-12-25 17:50 | XMS_ITS | Encounter Summary ---
Author Organization [facility] Address [address] [place] [address] Care Team Providers Care Labor Relations Worker Name Role Phone Manuela Quiroga MEAT SCRUBBER Primary Care Provider [phone] Encounter Details Date Type Department Care Team (Latest Contact Info) Description 06/16/[address] [facility] Occupational Medicine [address] [place] [address] Uriel Kim MD [address] [place] [address] SUPPUR OTITIS MEDIA NOS (Primary Dx) Social History Tobacco Use Types Packs/Day Years Used Date Smoking Tobacco: Never Assessed Comments Unknown Sex and Gender Information Value Date Recorded Sex Assigned at Not on file Legal Sex Female 4:40 AM SENIOUR INSIGHT MANAGER Gender Identity Not on file Sexual Orientation Not on file documented as of this encounter Plan of Treatment Not on file documented as of this encounter Visit Diagnoses Diagnosis Unspecified suppurative otitis media- Primary documented in this encounter Care Teams Labor Relations Worker Relationship Specialty Start Date End Date Manuela Quiroga NP [address] [place] [address] PCP - General NURSE PRACTITIONER 10/08/15 08/28/20 documented as of this encounter
--- OUTSIDE RECORDS SUMMARY | 2024-12-25 17:50 | XMS_ITS | Encounter Summary ---
Author Organization [facility] Address [address] [place] [address] Care Team Providers Care Engraver Apprentice Decorative Name Role Phone Manuela Quiroga WEBSPHERE COMMERCE DEVELOPER Primary Care Provider [phone] Encounter Details Date Type Department Care Team (Latest Contact Info) Description 06/06/2004 Outpatient Historical [facility] Occupational Medicine [address] [place] [address] Uriel Kim MD [address] [place] [address] SUPPUR OTITIS MEDIA NOS (Primary Dx) Social History Tobacco Use Types Packs/Day Years Used Date Smoking Tobacco: Never Assessed Comments Unknown Sex and Gender Information Value Date Recorded Sex Assigned at Not on file Legal Sex Female 4:40 AM RN POST PARTUM Gender Identity Not on file Sexual Orientation Not on file documented as of this encounter Plan of Treatment Not on file documented as of this encounter Visit Diagnoses Diagnosis Unspecified suppurative otitis media- Primary documented in this encounter Care Teams Engraver Apprentice Decorative Relationship Specialty Start Date End Date Manuela Quiroga NP [address] [place] [phone] PCP - General NURSE PRACTITIONER 10/08/15 08/28/20 documented as of this encounter
--- OUTSIDE RECORDS SUMMARY | 2024-12-25 17:50 | XMS_ITS | Encounter Summary ---
Author Organization [facility] Address [address] [place] [address] Care Team Providers Care Echocardiography Tech Name Role Phone Manuela Quiroga TRAFFIC CHECKER Primary Care Provider [phone] Encounter Details Date Type Department Care Team (Latest Contact Info) Description 07/18/2005 Outpatient Historical [facility] Occupational Medicine [address] [place] [address] Uriel Kim MD [address] [place] [address] Torticollis, Unspecified (Primary Dx) Social History Tobacco Use Types Packs/Day Years Used Date Smoking Tobacco: Never Assessed Comments Unknown Sex and Gender Information Value Date Recorded Sex Assigned at Not on file Legal Sex Female 4:40 AM MANAGER COMMUNITY RELATIONS Gender Identity Not on file Sexual Orientation Not on file documented as of this encounter Plan of Treatment Not on file documented as of this encounter Visit Diagnoses Diagnosis Torticollis, unspecified- Primary documented in this encounter Care Teams Echocardiography Tech Relationship Specialty Start Date End Date Manuela Quiroga NP [address] [place] [phone] PCP - General NURSE PRACTITIONER 10/08/15 08/28/20 documented as of this encounter
--- OUTSIDE RECORDS SUMMARY | 2024-12-25 17:50 | XMS_ITS | Encounter Summary ---
Author Organization [facility] Address [address] [place] [address] Care Team Providers Care Temporary Receptionist Name Role Phone Manuela Quiroga OUTREACH AND EDUCATION SOCIAL WORKER Primary Care Provider [phone] Encounter Details Date Type Department Care Team (Latest Contact Info) Description 07/19/2005 Outpatient Historical [facility] Occupational Medicine [address] [place] [address] Uriel Kim MD [address] [place] [address] Torticollis, Unspecified (Primary Dx) Social History Tobacco Use Types Packs/Day Years Used Date Smoking Tobacco: Never Assessed Comments Unknown Sex and Gender Information Value Date Recorded Sex Assigned at Not on file Legal Sex Female 4:40 AM THREAD SPOOLER Gender Identity Not on file Sexual Orientation Not on file documented as of this encounter Plan of Treatment Not on file documented as of this encounter Visit Diagnoses Diagnosis Torticollis, unspecified- Primary documented in this encounter Care Teams Temporary Receptionist Relationship Specialty Start Date End Date Manuela Quiroga NP [address] [place] [phone] PCP - General NURSE PRACTITIONER 10/08/15 08/28/20 documented as of this encounter
--- OUTSIDE RECORDS SUMMARY | 2024-12-25 17:50 | XMS_ITS | Encounter Summary ---
Author Organization [facility] Address [address] [place] [address] Care Team Providers Care Director Of Analytical Development Name Role Phone Manuela Quiroga MECHANIC SOUND TECHNICIAN Primary Care Provider [phone] Encounter Details Date Type Department Care Team (Latest Contact Info) Description 06/25/2005 Outpatient Historical [facility] Occupational Medicine [address] [place] [address] Uriel Kim MD [address] [place] [address] LYMPHADENITIS NOS (Primary Dx) Social History Tobacco Use Types Packs/Day Years Used Date Smoking Tobacco: Never Assessed Comments Unknown Sex and Gender Information Value Date Recorded Sex Assigned at Not on file Legal Sex Female 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
--- OUTSIDE RECORDS SUMMARY | 2024-12-25 17:50 | XMS_ITS | Encounter Summary ---
Author Organization [employer] [facility] Address [address] [place] [address] Care Team Providers Care Wireless Sales Associate Name Role Phone Manuela Quiroga OFFICE MACHINE INSTALLER Primary Care Provider [phone] Encounter Details Date Type Department Care Team (Latest Contact Info) Description 06/15/2005 Outpatient Historical [facility] Occupational Medicine [address] [place] [address] Uriel Kim MD [address] [place] [address] ACUTE URI NOS (Primary Dx); LYMPHADENITIS NOS Social History Tobacco Use Types Packs/Day Years Used Date Smoking Tobacco: Never Assessed Comments Unknown Sex and Gender Information Value Date Recorded Sex Assigned at Not on file Legal Sex Female 4:40 AM ELECTRIC TRAIN DRIVER Gender Identity Not on file Sexual Orientation Not on file documented as of this encounter Plan of Treatment Not on file documented as of this encounter Visit Diagnoses Diagnosis Acute upper respiratory infections of unspecified site- Primary Lymphadenitis, unspecified, except mesenteric documented in this encounter Care Teams Wireless Sales Associate Relationship Specialty Start Date End Date Manuela Quiroga NP [facility] [place] [phone] PCP - General NURSE PRACTITIONER 10/08/15 08/28/20 documented as of this encounter
--- OUTSIDE RECORDS SUMMARY | 2024-12-25 17:50 | XMS_ITS | Encounter Summary ---
Author Organization [facility] Address [address] [place] [address] Care Team Providers Care Material Handling Supervisor Name Role Phone Manuela Quiroga COLOR TELEVISION CONSOLE MONITOR Primary Care Provider [phone] Encounter Details Date Type Department Care Team (Latest Contact Info) Description 08/27/2005 Outpatient Historical [facility] Occupational Medicine [address] [place] [address] Uriel Kim MD [address] [place] [address] Abdominal Pain, Unspecified Site (Primary Dx); Pain in Joint, Site Unspecified Social History Tobacco Use Types Packs/Day Years Used Date Smoking Tobacco: Never Assessed Comments Unknown Sex and Gender Information Value Date Recorded Sex Assigned at Not on file Legal Sex Female 4:40 AM RN ADMISSION Gender Identity Not on file Sexual Orientation Not on file documented as of this encounter Plan of Treatment Not on file documented as of this encounter Visit Diagnoses Diagnosis Abdominal pain, unspecified site- Primary Pain in joint, site unspecified documented in this encounter Care Teams Material Handling Supervisor Relationship Specialty Start Date End Date Manuela Quiroga NP [address] [place] [address] PCP - General NURSE PRACTITIONER 10/08/15 08/28/20 documented as of this encounter
--- OUTSIDE RECORDS SUMMARY | 2024-12-25 17:50 | XMS_ITS | Clinical Summary ---
Author Organization [facility] Address [address] [place] [address] Care Team Providers Care Post Closing Specialist Name Role Phone Unavailable Primary Care Provider [...] on file Legal Sex Female 4:40 AM COCOA BEAN CLEANER Gender Identity Not on file Sexual Orientation Not on file Occupation Industry Job Start Date Job End Date Not on file Not on file Not on file Not on file Last Filed Vital Signs Vital Sign Reading Time Taken Comments Blood Pressure 100/68 08/29/2020 2:00 PM CDT Pulse 68 03/09/2020 5:24 PM COCOA BEAN CLEANER Temperature 36.3 C (97.4 F) 08/29/2020 12:56 [...] 08/22/2007 12/16/2000, 12/17/1999, 04/04/1998, Additional history exists CERVICAL CANCER SCREENING 2017 HPV/Cotest (21-29) 2017 PAP SMEAR 2017 HPV VACCINES (1 - 3-dose SCD M series) 08/22/2023 INFLUENZA VACCINE (#1) 2024 HEPATITIS B VACCINES [...] DETECTED Not Detected 01/06/2017 5:05 PM CDT [facility] GC DNA AMPLIFICATION NOT DETECTED Not Detected 01/06/2017 5:05 PM CDT [facility] Genital SPECIMEN FROM VAGINA / Unknown Collection / Unknown 01/06/2017 3:08 AM CDT 01/06/2017 3:18 AM CDT Narrative [facility] - 01/06/2017 5:05 PM CDT Results should not be used for the evaluation of suspected sexual abuse or for other medico-legal indications. The only legally accepted results are from culture. Results cannot be used to assess therapeutic success or failure since nucleic acids may persist following antimicrobial therapy. us Charlotte Phillip DO [employer] Final Result [facility] CLIA# [id number] [address] [place] [id number] from Last 3 Months or Most Recently Relevant to Health Maintenance Advance Directives For more information, please contact: [phone] * Full Code (Latest Code Status on File) Date Activated Date Inactivated Comments 10/30/2008 12:26 AM 11/02/2008 11:57 AM
--- OUTSIDE RECORDS SUMMARY | 2024-12-25 17:50 | XMS_ITS | Encounter Summary ---
Author Organization [facility] Address [address] [place] [address] Care Team Providers Care Missing Persons Investigator Name Role Phone Manuela Quiroga NP Primary Care Provider [phone] Encounter Details Date Type Department Care Team (Latest Contact Info) Description 06/01/2005 Outpatient Historical [facility] Occupational Medicine [address] [place] [address] Lauryn Beavers MD NO ADDRESS ON FILE STREP SORE THROAT (Primary Dx) Social History Tobacco Use Types Packs/Day Years Used Date Smoking Tobacco: Never Assessed Comments Unknown Sex and Gender Information Value Date Recorded Sex Assigned at Not on file Legal Sex Female 4:40 AM HEALTH INFORMATION SPECIALIST Gender Identity Not on file Sexual Orientation Not on file documented as of this encounter Plan of Treatment Not on file documented as of this encounter Visit Diagnoses Diagnosis Streptococcal sore throat- Primary documented in this encounter Care Teams Missing Persons Investigator Relationship Specialty Start Date End Date Manuela Quiroga NP [address] [place] [address] PCP - General NURSE PRACTITIONER 10/08/15 08/28/20 documented as of this encounter
--- OUTSIDE RECORDS SUMMARY | 2024-12-25 17:50 | XMS_ITS | Encounter Summary ---
Author Organization [facility] Address [address] [place] [address] Care Team Providers Care Fountain Supervisor Name Role Phone Manuela Quiroga TERMITE CONTROL SERVICER Primary Care Provider [phone] Encounter Details Date Type Department Care Team (Latest Contact Info) Description 11/20/2006 Outpatient Historical [facility] Occupational Medicine [address] [place] [address] Rohan May, PA [address] [place] [address] Cellulitis and Abscess of Leg, except Foot (Primary Dx) Social History Tobacco Use Types Packs/Day Years Used Date Smoking Tobacco: Never Assessed Comments Unknown Sex and Gender Information Value Date Recorded Sex Assigned at Not on file Legal Sex Female 4:40 AM ASSOCIATE PROFESSOR OF THEATRE Gender Identity Not on file Sexual Orientation Not on file documented as of this encounter Plan of Treatment Not on file documented as of this encounter Visit Diagnoses Diagnosis Cellulitis and abscess of leg, except foot- Primary documented in this encounter Care Teams Fountain Supervisor Relationship Specialty Start Date End Date Manuela Quiroga NP [facility] [place] [phone] PCP - General NURSE PRACTITIONER 10/08/15 08/28/20 documented as of this encounter
--- OUTSIDE RECORDS SUMMARY | 2024-12-25 17:50 | XMS_ITS | Clinical Summary ---
Author Organization [facility] Address [address] [place] [address] Phone Care Team Providers Care Coal Pulverizer Operator Name Role Phone Sabina Castro [facility] Primary Care Provider [phone] Medications No known medications Active Problems No known active problems Resolved Problems Problem Noted Date Diagnosed Date Resolved Date Alcohol intoxication with bl ood alcohol level greater than 0.3 04/19/2022 04/20/2022 Social History Tobacco Use Types Packs/Day Years Used Date Smoking Tobacco: Every Day Cigarettes Tobacco Cessation:Ready to Q uit: Not Asked; Counseling Given: Not Answered Alcohol Use Standard Drinks/Week Comments Yes 0 (1 standard drink = 0.6 oz pure alcohol) She reports 2 shots every couple of month Overall Financial Resource Strain (CARDIA) Answe r Date Recorded How hard is it for you to pa y for the very basics like food, housing, medical care, and heating? Not very hard 04/19/2022 PRAPARE - Transportation Answer Date Re corded In the past 12 months, has l ack of transportation kept you from medical appointments or from getting medications? No 03/30 In the past 12 months, has l ack of transportation kept you from meetings, work, or from getting things needed for daily living? No 04/19/2022 Comments Unknown Sex and Gender Information Value Date Recorded Sex Assigned at Not on file Legal Sex Female 11:51 PM CENTRAL SUPPLY AIDE Gender Identity Not on file Sexual Orientation Not on file Last Filed Vital Signs Vital Sign Reading Time Taken Comments Blood Pressure 127/79 04/20/2022 10:56 AM CENTRAL SUPPLY AIDE Pulse 67 04/20/2022 10:56 AM CENTRAL SUPPLY AIDE Temperature 36.3 C (97.3 F) 04/20/2022 8:00 AM CENTRAL SUPPLY AIDE Respiratory Rate 12 04/20/2022 10:56 AM CENTRAL SUPPLY AIDE Oxygen Saturation 97% 04/20/2022 8:00 AM CENTRAL SUPPLY AIDE Inhaled Oxygen Concentration - - Weight 56.9 kg (125 lb 7.1 oz) 04/20/2022 6:00 A M CENTRAL SUPPLY AIDE Height 180.3 cm (5' 11 ) 04/19/2022 2:28 AM CENTRAL SUPPLY AIDE Body Mass Index 17.5 04/19/2022 2:28 AM CENTRAL SUPPLY AIDE Plan of Treatment Health Maintenance Due Date Last Done Comments MMR Vaccines (1 of 1 - Standard series) 01/13/2001 DTaP,Tdap,and Td Vaccines (6 - Tdap) 08/22/2007 12/16/2000, 12/17/1999, 04/04/1998, Additional history exists Varicella Vaccines (1 of 2 - 13+ 2-dose series) 2009 Depression Screening 2014 Social Drivers of Health (SDoH) 2014 Hepatitis B Vaccines (1 of 3 - 19+ 3-dose series) 08/22/2015 Pneumococcal Vaccine: 50+ Years (1 of 2 - PCV) 08/22/2015 Pneumococcal Vaccine (1 of 2 - PCV) 08/22/2015 Pap Smear 2017 HPV Vaccines (1 - 3-dose SCDM series) 08/22/2023 COVID-19 Vaccine (1 - 2023- season) 2023 Influenza Vaccine (#1) 2024 Zoster Vaccines (1 of 2) 2046 12/16/2000, 11/28 RSV Vaccines (1 - 1-dose 75+ series) 08/22/2071 HIB Vaccines Aged Out No longer eligi ble based on patient's age to complete this topic Hepatitis A Vaccines Aged Out No long er eligible based on patient's age to complete this topic IPV Vaccines Aged Out No longer eligi ble based on patient's age to complete this topic Meningococcal B Vaccine Aged Out No l onger eligible based on patient's age to complete this topic Meningococcal Vaccine Aged Out No pao meliza eligible based on patient's age to complete this topic Rotavirus Vaccines Aged Out No longer eligible based on patient's age to complete this topic Insurance HOME STATE Advance Directives For more information, please contact: [phone] (7:30 AM - 5PM [facility], 7 days a week) * Full Code (Latest Code Status on File) Date Activated Date Inactivated Comments 04/19/2022 2:45 AM 04/20/2022 2:33 PM Care Teams Coal Pulverizer Operator Relationship Specialty Start Date End Date Sabina Castro FNP [address], [place] [address] PCP - General Family Medicine 04/17/22
--- OUTSIDE RECORDS SUMMARY | 2024-12-25 17:50 | XMS_ITS | Encounter Summary ---
Author Organization [facility] Address [address] [place] [address] Care Team Providers Care Operations Asst Name Role Phone Manuela Quiroga TECHNOLOGY SPECIALIST Primary Care Provider [phone] Encounter Details Date Type Department Care Team (Latest Contact Info) Description 06/05/2005 Outpatient Historical [facility] Occupational Medicine [address] [place] [address] Uriel Kim MD [address] [place] [address] LYMPHADENITIS NOS (Primary Dx) Social History Tobacco Use Types Packs/Day Years Used Date Smoking Tobacco: Never Assessed Comments Unknown Sex and Gender Information Value Date Recorded Sex Assigned at Not on file Legal Sex Female 4:40 AM SUPERVISOR REINFORCED STEEL PLACING Gender Identity Not on file Sexual Orientation Not on file documented as of this encounter Plan of Treatment Not on file documented as of this encounter Visit Diagnoses Diagnosis Lymphadenitis, unspecified, except mesenteric- Primary documented in this encounter Care Teams Operations Asst Relationship Specialty Start Date End Date Manuela Quiroga NP [address] [place] [address] PCP - General NURSE PRACTITIONER 10/08/15 08/28/20 documented as of this encounter
--- OUTSIDE RECORDS SUMMARY | 2024-12-25 17:50 | XMS_ITS | Encounter Summary ---
Author Organization [facility] Address [address] [place] [address] Care Team Providers Care In Store Representative Name Role Phone Manuela Quiroga NP Primary Care Provider [phone] Encounter Details Date Type Department Care Team (Latest Contact Info) Description 06/25/2006 Outpatient Historical [facility] Occupational Medicine [address] [place] [address] Uriel Kim MD [address] [place] [address] Unspecified Asthma (Primary Dx) Social History Tobacco Use Types Packs/Day Years Used Date Smoking Tobacco: Never Assessed Comments Unknown Sex and Gender Information Value Date Recorded Sex Assigned at Not on file Legal Sex Female 4:40 AM DIESEL SERVICE TECHNICIAN Gender Identity Not on file Sexual Orientation Not on file documented as of this encounter Plan of Treatment Not on file documented as of this encounter Visit Diagnoses Diagnosis Unspecified asthma(493.90)- Primary Unspecified asthma documented in this encounter Care Teams In Store Representative Relationship Specialty Start Date End Date Manuela Quiroga NP [address] [place] [address] PCP - General NURSE PRACTITIONER 10/08/15 08/28/20 documented as of this encounter
--- OUTSIDE RECORDS SUMMARY | 2024-12-25 17:50 | XMS_ITS | Encounter Summary ---
Author Organization [facility] Address [address] [place] [address] Care Team Providers Care Care Connector Name Role Phone Manuela Quiroga [employer] MEDIA SPECIALIST Primary Care Provider [phone] Encounter Details Date Type Department Care Team (Latest Contact Info) Description 03/24/2003 Outpatient Historical [facility] Occupational Medicine [address] [place] [address] Uriel Kim MD [address] [place] [address] DERMATITIS NOS (Primary Dx); ACUTE PHARYNGITIS Social History Tobacco Use Types Packs/Day Years Used Date Smoking Tobacco: Never Assessed Comments Unknown Sex and Gender Information Value Date Recorded Sex Assigned at Not on file Legal Sex Female 4:40 AM SEED CORN MANAGER PRODUCTION Gender Identity Not on file Sexual Orientation Not on file documented as of this encounter Plan of Treatment Not on file documented as of this encounter Visit Diagnoses Diagnosis Contact dermatitis and other eczema, due to unspecified cause- Primary Acute pharyngitis documented in this encounter Care Teams Care Connector Relationship Specialty Start Date End Date Manuela Quiroga NP [facility] [place] [address] PCP - General NURSE PRACTITIONER 10/08/15 08/28/20 documented as of this encounter
[2024-12-25] MEDS: haloperidol inj 5 mg/mL INJ 1 mL IVP (18:00)
[2024-12-25] MEDS: LORazepam 2 mg/mL INJ 1 mL IVP (18:00)
--- NOTE | 2024-12-25 18:03 | ED_ITS ---
Documented by User: Kvng Cisse MD 12/25/24 22:42 HPI - General Adult 2 General: Chief complaint: Psychiatric Symptoms Stated complaint: SI Time Seen by Provider: 12/25/24 17:53 History of Present Illness: Patient is brought in by police after being found on the side of the road flagging cars down. She states that she is 5 months and seemed extremely intoxicated per the police. States she wants to or she wants someone to kill her. States she also has 5 months and wants drugs to kill the baby. Here the patient is very agitated and combative. She is yelling and cursing throwing things. For her safety and our safety she was given 5 mg of IV IM Haldol and 2 mg of IM Ativan. Will check labs, and reassess. Related Data Previous Rx's ?Medication ?Instructions ?Recorded ibuprofen 800 mg tablet 800 mg PO Q8H PRN pain #21 t abs 04/18/24 prednisone 5 mg tablet See Rx Instructions PO .COMP ANGELITA 11/12/24 #80 tabs Allergies Allergy/AdvReac Type Severity Reaction Status Date / Time latex Allergy ALGY-Anaphy Verified 12/31/22 07:53 laxis metronidazole (From Flagyl) Allergy ADR-Seizure Verified 12/31/22 07:53 risperidone (From Risperdal) Allergy ADR-Seizure Verified 12/31/22 07:53 Review of Systems 2 Psych: Reports: other (Agitated, combative, uncooperative) PFS ED 2 PFSH: Medical History (Updated 12/26/24 @ 04:23 by Mauro Rollins DO) Psychiatric care Viral syndrome No pertinent family history Surgical History H/O tubal ligation Social History Smoking and tobacco/nicotine status: current every day tobacco/nicotine user Alcohol intake: current Alcohol intake frequency: holidays/special occasions only Substance/Drug Use: never Current gender identity: Female Physical Exam 2 Const: COMMON NORMALS: alert HENMT: COMMON NORMALS: normocephalic and atraumatic HEAD & SCALP: n ormocephalic and atraumatic Neck/C-Spine: COMMON NORMALS: full ROM and supple Resp: COMMON NORMALS: normal respiratory effort, No retractions and No use of accessory muscles Extremity: COMMON NORMALS: normal to inspection and full ROM Neuro: SENSORIUM/ORIENTATION: Yes alert Psych: OTHER: Combative, uncooperative, aggressive Course 2 Vital Signs: Vital signs: Vital Signs Temperature 97.6 F 12/25/24 18:16 Pulse Rate 62 12/26/24 02:00 Respiratory Rate 17 12/25/24 19:32 Blood Pressure 96/64 12/26/24 02:00 Pulse Oximetry 96 12/26/24 02:00 Oxygen Delivery Me thod Room Air 12/26/24 02:00 MDM - General Adult Medical Decision Making Awaiting sobriety. Will sign out to the oncoming physician. Lab Data 12/25/24 19:30 12/25/24 19:30 Laboratory Results WBC 6.97 10^3/uL (3.29-11.43) 12/25/24 19:30 RBC 3.52 10^6/uL (3.85-5.65) L 12/25/24 19:30 Hgb 11.90 g/dL (11.27-16.99) 12/25/24 19:30 Hct 35.9 % (36-47) L 12/25/24 19:30 MCV 102.0 fl (85-98) H 12/25/24 19:30 MCH 33.8 pg (27-33) H 12/25/24 19:30 MCHC 33.1 g/dL (30-55) 12/25/24 19:30 RDW 14.0 % (12.1-15.1) 12/25/24 19:30 Plt Count 350 10^3/cmm (157-399) 12/25/24 19:30 MPV 9.1 fL (7.4-10.4) 12/25/24 19:30 Neut % (Auto) 58.4 % 12/25/24 19:30 Lymph % (Auto) 30.0 % 12/25/24 19:30 Dodge % (Auto) 7.3 % 12/25/24 19:30 Eos % (Auto) 2.3 % 12/25/24 19:30 Baso % (Auto) 1.9 % 12/25/24 19:30 Neut # (Auto) 4.07 10^3/uL (1.8-7.7) 12/25/24 19:30 Lymph # (Auto) 2.1 10^3/uL (0.8-4.8) 12/25/24 19:30 Dodge # (Auto) 0.5 10^3/uL (0.2-0.9) 12/25/24 19:30 Eos # (Auto) 0.2 10^3/uL (0.0-0.8) 12/25/24 19:30 Baso # (Auto) 0.1 10^3/uL (0.0-0.1) 12/25/24 19:30 Nucleated RBC % (auto) 0 % 12/25/24 19: Nucleated RBCs # 0.0 /100WBC 12/25/24 19:30 Sodium 144 mmol/L (136-145) 12/25/24 19: Potassium 2.6 mmol/L (3.5-5.1) L* 12/25/24: Chloride 106 mmol/L (98-107) 12/25/24 19: Carbon Dioxide 24 mmol/L (22-29) 12/25/24 19:30 Anion Gap 16.6 (5-19) 12/25/24 19:30 BUN 5 mg/dL (6-20) L 12/25/24 19:30 Creatinine 0.6 mg/dL (0.5-0.9) 12/25/24 19:30 GFR Calculation 119.0 mL/min (90-130) 12/25/24 19: Glucose 98 mg/dL (65-115) 12/25/24 19: Calculated Osmolality 295 mOsm/kg (285-295) 12/25/24 19: Calcium 8.7 mg/dL (8.5-10.5) 12/25/24 19: Total Bilirubin 0.3 mg/dL (0.15-1.2) 12/25/24 19: AST 48 U/L (0-32) H 12/25/24 19:30 ALT 25 U/L (0-33) 12/25/24 19:30 Alkaline Phosphatase 78 U/L (35-105) 12/25/24 19: Total Protein 7.2 g/dL (6.6-8.7) 12/25/24 19:30 Albumin 4.4 g/dL (3.5-5.2) 12/25/24 19:30 Globulin 2.8 g/dL (1.3-4.6) 12/25/24 19:30 Ser , Semi-Qnt < 1.00 mIU/mL 12/25/24 19:30 Urine Color Yellow (Yellow) 12/26/24 02:39 Urine Appearance Clear (CLEAR) 12/26/24 02:39 Urine pH 5.5 (5-7) 12/26/24 02:39 Ur Specific [place] 1.013 (1.005-1.030) 12/26/24 02:39 Urine Protein Negative (Negative) 12/26/24 02:39 Urine Glucose (UA) Negative (Normal) 12/26/24 02:39 Urine Ketones Negative (Negative) 12/26/24 02:39 Urine Blood Non-haemolysed trace (Negative) 12/26/24 02:39 Urine Nitrate Negative (Negative) 12/26/24 02:39 Urine Bilirubin Negative (Negative) 12/26/24 02:39 Urine Urobilinogen 1.0 mg/dL (Negative) 12/26/24 02:39 Ur Leukocyte Esterase Negative (Negative) 12/26/24 02:39 Urine RBC 0-2 /hpf (0-2) 12/26/24 02:39 Urine WBC 0-5 /hpf (0-5) 12/26/24 02:39 Ur Squamous Epith Cells 6-10 /hpf (0-5) 12/26/24 02:39 Amorphous Sediment Not Reportable 12/26/24 02:39 Urine Bacteria Trace /hpf (NONE) 12/26/24 02:39 Hyaline Casts 1.21 /lpf 12/26/24 02:39 Salicylates < 0.3 mg/dL (3-10) L 12/25/24 19:30 Acetaminophen < 5.0 ug/mL (10-30) L 12/25/24 19:30 Ethyl Alcohol 89 mg/dL (0-10) H 12/26/24 03:08 No radiology studies performed this visit Discharge Plan Discharge Patient Disposition: Home Clinical Impression: Alcohol intoxication Condition: Stable Prescriptions: No Action ibuprofen 800 mg tablet 800 mg PO Q8H PRN (Reason: pain) Qty: 21 0RF prednisone 5 mg tablet See Rx Instructions .ROUTE .COMPLEX Qty: 80 0RF Rx Instructions: prednisone 5 mg: take 8 tablets (40 mg) on Days 1-4; 6 tablets (30 mg) on Days 5-8; then 4 tabs (20 mg) days 9-12; then 2 tabs (10 mg) days 13-16. Discharge Orders: Discharge ED (Routine); Ordered 12/26/24 Ordered By: Mauro Rollins Patient Instructions: Alcohol Intoxication (ED), Opioid Safety, Pain Management, Patient Portal & [facility] Instructions Activity Restrictions/Additional Instructions: Return for thoughts or wishes to harm your self or anyone else. Follow-up with your doctor next week. Avoid alcohol. Print Language: [place] Citizen Coding Level of Care Code ED T Rail Turner for Chg Fwd Documented by User: Mauro Rollins DO 12/26/24 05:03 HPI - General Adult 2 General: Chief complaint: Psychiatric Symptoms Stated complaint: SI Time Seen by Provider: 12/25/24 17:53 Related Data Previous Rx's ?Medication ?Instructions ?Recorded ibuprofen 800 mg tablet 800 mg PO Q8H PRN pain #21 t abs 04/18/24 prednisone 5 mg tablet See Rx Instructions PO .COMP ANGELITA 11/12/24 #80 tabs Allergies Allergy/AdvReac Type Severity Reaction Status Date / Time latex Allergy ALGY-Anaphy Verified 12/31/22 07:53 laxis metronidazole (From Flagyl) Allergy ADR-Seizure Verified 12/31/22 07:53 risperidone (From Risperdal) Allergy ADR-Seizure Verified 12/31/22 07:53 [facility] ED 2 PFSH: Medical History (Updated 12/26/24 @ 04:23 by Mauro Rollins DO) Psychiatric care Viral syndrome No pertinent family history Surgical History H/O tubal ligation Social History Smoking and tobacco/nicotine status: current every day tobacco/nicotine user Alcohol intake: current Alcohol intake frequency: holidays/special occasions only Substance/Drug Use: never Current gender identity: Female Course 2 Vital Signs: Vital signs: Vital Signs Temperature 97.6 F 12/25/24 18:16 Pulse Rate 62 12/26/24 02:00 Respiratory Rate 17 12/25/24 19:32 Blood Pressure 96/64 12/26/24 02:00 Pulse Oximetry 96 12/26/24 02:00 Oxygen Delivery Me thod Room Air 12/26/24 02:00 MDM - General Adult Medical Decision Making Awaiting sobriety. Will sign out to the oncoming physician. Patient is now much more sober. Alcohol level is 89. She denies suicidality or homicidality. She wishes to go home. She will be discharged. Lab Data 12/25/24 19:30 12/25/24 19:30 Laboratory Results WBC 6.97 10^3/uL (3.29-11.43) 12/25/24 19:30 RBC 3.52 10^6/uL (3.85-5.65) L 12/25/24 19:30 Hgb 11.90 g/dL (11.27-16.99) 12/25/24 19:30 Hct 35.9 % (36-47) L 12/25/24 19:30 MCV 102.0 fl (85-98) H 12/25/24 19:30 MCH 33.8 pg (27-33) H 12/25/24 19:30 MCHC 33.1 g/dL (30-55) 12/25/24 19:30 RDW 14.0 % (12.1-15.1) 12/25/24 19:30 Plt Count 350 10^3/cmm (157-399) 12/25/24 19:30 MPV 9.1 fL (7.4-10.4) 12/25/24 19:30 Neut % (Auto) 58.4 % 12/25/24 19:30 Lymph % (Auto) 30.0 % 12/25/24 19:30 Dodge % (Auto) 7.3 % 12/25/24 19:30 Eos % (Auto) 2.3 % 12/25/24 19:30 Baso % (Auto) 1.9 % 12/25/24 19:30 Neut # (Auto) 4.07 10^3/uL (1.8-7.7) 12/25/24 19:30 Lymph # (Auto) 2.1 10^3/uL (0.8-4.8) 12/25/24 19:30 Dodge # (Auto) 0.5 10^3/uL (0.2-0.9) 12/25/24 19:30 Eos # (Auto) 0.2 10^3/uL (0.0-0.8) 12/25/24 19:30 Baso # (Auto) 0.1 10^3/uL (0.0-0.1) 12/25/24 19: Nucleated RBC % (auto) 0 % 12/25/24 19: Nucleated RBCs # 0.0 /100WBC 12/25/24 19:30 Sodium 144 mmol/L (136-145) 12/25/24 19: Potassium 2.6 mmol/L (3.5-5.1) L* 12/25/24 19: Chloride 106 mmol/L (98-107) 12/25/24 19: Carbon Dioxide 24 mmol/L (22-29) 12/25/24 19:30 Anion Gap 16.6 (5-19) 12/25/24 19:30 BUN 5 mg/dL (6-20) L 12/25/24 19:30 Creatinine 0.6 mg/dL (0.5-0.9) 12/25/24 19: GFR Calculation 119.0 mL/min (90-130) 12/25/24 19: Glucose 98 mg/dL (65-115) 12/25/24 19:30 Calculated Osmolality 295 mOsm/kg (285-295) 12/25/24 19: Calcium 8.7 mg/dL (8.5-10.5) 12/25/24 19: Total Bilirubin 0.3 mg/dL (0.15-1.2) 12/25/24 19:30 AST 48 U/L (0-32) H 12/25/24 19:30 ALT 25 U/L (0-33) 12/25/24 19:30 Alkaline Phosphatase 78 U/L (35-105) 12/25/24 19:30 Total Protein 7.2 g/dL (6.6-8.7) 12/25/24 19:30 Albumin 4.4 g/dL (3.5-5.2) 12/25/24 19:30 Globulin 2.8 g/dL (1.3-4.6) 12/25/24 19:30 Ser , Semi-Qnt < 1.00 mIU/mL 12/25/24 19:30 Urine Color Yellow (Yellow) 12/26/24 02:39 Urine Appearance Clear (CLEAR) 12/26/24 02:39 Urine pH 5.5 (5-7) 12/26/24 02:39 Ur Specific [place] 1.013 (1.005-1.030) 12/26/24 02:39 Urine Protein Negative (Negative) 12/26/24 02:39 Urine Glucose (UA) Negative (Normal) 12/26/24 02:39 Urine Ketones Negative (Negative) 12/26/24 02:39 Urine Blood Non-haemolysed trace (Negative) 12/26/24 02:39 Urine Nitrate Negative (Negative) 12/26/24 02:39 Urine Bilirubin Negative (Negative) 12/26/24 02:39 Urine Urobilinogen 1.0 mg/dL (Negative) 12/26/24 02:39 Ur Leukocyte Esterase Negative (Negative) 12/26/24 02:39 Urine RBC 0-2 /hpf (0-2) 12/26/24 02:39 Urine WBC 0-5 /hpf (0-5) 12/26/24 02:39 Ur Squamous Epith Cells 6-10 /hpf (0-5) 12/26/24 02:39 Amorphous Sediment Not Reportable 12/26/24 02:39 Urine Bacteria Trace /hpf (NONE) 12/26/24 02:39 Hyaline Casts 1.21 /lpf 12/26/24 02:39 Salicylates < 0.3 mg/dL (3-10) L 12/25/24 19:30 Acetaminophen < 5.0 ug/mL (10-30) L 12/25/24 19:30 Ethyl Alcohol 89 mg/dL (0-10) H 12/26/24 03:08 Discharge Plan Discharge Patient Disposition: Home Clinical Impression: Alcohol intoxication Condition: Stable Prescriptions: No Action ibuprofen 800 mg tablet 800 mg PO Q8H PRN (Reason: pain) Qty: 21 0RF prednisone 5 mg tablet See Rx Instructions .ROUTE .COMPLEX Qty: 80 0RF Rx Instructions: prednisone 5 mg: take 8 tablets (40 mg) on Days 1-4; 6 tablets (30 mg) on Days 5-8; then 4 tabs (20 mg) days 9-12; then 2 tabs (10 mg) days 13-16. Discharge Orders: Discharge ED (Routine); Ordered 12/26/24 Ordered By: Mauro Rollins Patient Instructions: Alcohol Intoxication (ED), Opioid Safety, Pain Management, Patient Portal & [facility] Instructions Activity Restrictions/Additional Instructions: Return for thoughts or wishes to harm your self or anyone else. Follow-up with your doctor next week. Avoid alcohol. Print Language: [place] Citizen Coding Level of Care Code ED T Rail Turner for Jessica Green
--- NOTE | 2024-12-25 18:12 | PC.NURSE ---
PT extremely agitated and verbally threatening staff. PT stated im going to hurt somebody PT yelling and calling derogatory names to staff. PT attempted to be berballly de-escalated by multiple staff. PT would not calm down. PT placed in 4 point restraints by bebal zak of dr. hernandez. Dr. hernandez, maria luisa aceves, this nurse, and multiple other nurses.
[2024-12-25 18:16] VITALS: BP 103/66; PULSE 74; TEMP 36.4; O2SAT 94
--- NOTE | 2024-12-25 18:32 | PC.NURSE ---
Involuntary 96 hour hold rights read and reviewed with patient. Sixto from [employer] present during reading of rights. Patient stated Yeah i know bitch i will be here a fucking week I already fucking know Copy of rights given to patient.
[2024-12-25 19:00] VITALS: BP 87/54; PULSE 54; O2SAT 96
[2024-12-25 19:32] VITALS: BP 114/77; PULSE 54; RESP 17; O2SAT 96
[2024-12-25 19:55] LABS: Hematocrit 35.9 % (36-47); Hemoglobin 11.90 g/dL (11.27-16.99); Mean Corpuscular HGB Conc 33.1 g/dL (30-55); Mean Corpuscular Hemoglobin 33.8 pg (27-33); Mean Corpuscular Volume 102.0 fl (85-98); Nucleated Red Blood Cells % 0 %; Platelet Count 350 10^3/cmm (157-399); Red Blood Count 3.52 10^6/uL (3.85-5.65); White Blood Count 6.97 10^3/uL (3.29-11.43)
[2024-12-25 20:07] VITALS: BP 87/54; PULSE 55; O2SAT 95
[2024-12-25 20:18] LABS: Alanine Aminotransferase 25 U/L (0-33); Albumin Level 4.4 g/dL (3.5-5.2); Alkaline Phosphatase 78 U/L (35-105); Anion Gap 16.6 (5-19); Aspartate Amino Transferase 48 U/L (0-32); Blood Urea Nitrogen 5 mg/dL (6-20); Calcium 8.7 mg/dL (8.5-10.5); Carbon Dioxide 24 mmol/L (22-29); Chloride 106 mmol/L (98-107); Globulin 2.8 g/dL (1.3-4.6); Glucose 98 mg/dL (65-115); Osmolality Calculated 295 mOsm/kg (285-295); Sodium 144 mmol/L (136-145); Total Protein 7.2 g/dL (6.6-8.7)
[2024-12-25 20:27] LABS: Acetaminophen < 5.0 ug/mL (10-30); Alcohol Level 326 mg/dL (0-10); Potassium 2.6 mmol/L (3.5-5.1); Salicylate < 0.3 mg/dL (3-10)
[2024-12-25] MEDS: potassium chloride oral liq 20 mEq/15 mL UDC 40 MEQ PO (20:50)
[2024-12-25 21:16] VITALS: BP 93/57; PULSE 56; O2SAT 98
[2024-12-26 02:00] VITALS: BP 96/64; PULSE 62; O2SAT 96
[2024-12-26 03:02] LABS: Glucose Urine UA Negative (Normal); Nitrate Urine Negative (Negative); Specific Gravity, Urine 1.013 (1.005-1.030)
[2024-12-26 03:07] LABS: Add Urine Microscopic? YES
[2024-12-26 04:09] LABS: Alcohol Level 89 mg/dL (0-10)
== END 2024-12-26 04:45 | disposition home or self-care (01) ==
PROVIDERS: Emergency Medicine; Emergency Provider Emergency Medicine
DX: F10.129 Alcohol abuse with intoxication, unspecified (principal); Y90.4 Blood alcohol level of 80-99 mg/100 ml; Z72.0 Tobacco use
CPT/HCPCS: 36415; 80053; 80307; 81001; 84702; 85025; 96361; 96374; 96375; 99284; J1630; J2060; J7030; J9999